=== PATIENT | female | born 1985 | race Caucasian/White ===

== ENCOUNTER 2019-09-11 20:09 | Emergency (ER) | payer BC, OTHER ==
[~2019-09-11] VITALS: Ht 162.6 cm; Wt 81.3 kg
[~2019-09-11 20:09] MED LIST: ASPI-630 PO; IBUP400T18 PO; LEVO75TA PO; METO50TA29 PO; METO50TA4 PO; OXYC1TAB15 PO; PANT40TA3 PO
[2019-09-11 20:46] LABS: BASO % 1 % (0-3); EOS # 0.1 x10^3/uL (0.0-0.7); EOS % 2 % (0-3); HEMATOCRIT 39.9 % (36.0-47.0); HEMOGLOBIN 13.8 g/dL (12.0-15.5); LYMPH # 2.8 x10^3/uL (1.0-4.8); LYMPH % 42 % (24-48); MEAN CORPUSCULAR HEMOGLOBIN 31 pg (25-35); MEAN CORPUSCULAR HGB CONC 35 g/dL (31-37); MEAN CORPUSCULAR VOLUME 91 fL (79-100); MONO # 0.4 x10^3/uL (0.0-1.1); MONO % 7 % (0-9); NEUT # 3.2 x10^3uL (1.8-7.7); NEUT % 49 % (31-73); PLATELET COUNT 161 x10^3/uL (140-400); RED BLOOD COUNT 4.39 x10^6/uL (3.50-5.40); RED CELL DISTRIBUTION WIDTH 11.4 % (11.5-14.5); WHITE BLOOD COUNT 6.6 x10^3/uL (4.0-11.0)
[2019-09-11 20:53] LABS: CALCIUM 8.3 mg/dL (8.5-10.1); CREATININE 0.9 mg/dL (0.6-1.0); GFR 71.7; POTASSIUM 3.3 mmol/L (3.5-5.1)
[2019-09-11 20:54] LABS: BACTERIA,URINE FEW /HPF (0-FEW); BILIRUBIN,URINE SMALL (NEG); CLARITY,URINE HAZY; COLOR,URINE AMBER; GLUCOSE,URINE NEG (NEG); NITRITE,URINE NEG (NEG); SQUAMOUS EPITHELIAL CELL,UR OCC /LPF
[2019-09-11 20:59] LABS: ALBUMIN 3.5 g/dL (3.4-5.0); ALBUMIN/GLOBULIN RATIO 0.9 (1.0-1.7); TOTAL BILIRUBIN 0.3 mg/dL (0.2-1.0); TOTAL PROTEIN 7.2 g/dL (6.4-8.2)
[2019-09-11 21:10] LABS: U PREG PATIENT NEGATIVE (NEG)
[2019-09-11] MEDS ORDERED: IOHEXOL 300 MG/ML 75 ML VIAL. IV ONE (21:30)
[2019-09-11] MEDS ORDERED: MORPHINE SULFATE 4 MG/ML DISP.SYRIN. IV ONE (21:30)
[2019-09-11] MEDS ORDERED: IV NORMAL SALINE 1,000ML 1,000 ML IV ONE (21:30)
[2019-09-11] MEDS ORDERED: diphenhydrAMINE 50 MG/ML VIAL IVP ONE (21:30)
[2019-09-11] MEDS ORDERED: POTASSIUM CHLORIDE 20 MEQ TABLET.ER. PO ONE (21:30)
[2019-09-11] MEDS ORDERED: CONTRAST GIVEN MC PRN (21:30)
[2019-09-11] MEDS ORDERED: KETOROLAC 30 MG/ML VIAL. IVP ONE (22:00)
--- NOTE | 2019-09-11 22:03 | RAD ---
CT abdomen and pelvis with contrast: Reason for examination: Severe low abdominal and back pain with cramping since Sunday. History of sacral fracture and L5 pars defect. History of cholecystectomy, appendectomy and bowel resection. Comparison is made to previous studies dated 08/13/2015 and 06/24/2014. Helical images were obtained through the abdomen and pelvis with intravenous administration of 75 cc Omnipaque 300. Reconstruction was performed in sagittal and coronal planes. Exposure: One or more of the following individualized dose reduction techniques were utilized for this examination: 1. Automated exposure control 2. Adjustment of the mA and/or kV according to patient size 3. Use of iterative reconstruction technique. The lung bases are clear. The heart size is normal with no pericardial effusion. No abnormality seen at the liver, spleen, adrenal glands or pancreas. The gallbladder is surgically absent. The kidneys show no renal masses, renal calculi, hydronephrosis or evidence of obstructive uropathy. The abdominal aorta and inferior vena cava show no acute abnormalities. The stomach contains a large amount of gastric content but no wall thickening. There is no gastric obstruction apparent. The small intestinal tract does not appear abnormally dilated and there is no wall thickening or evidence of obstruction. There are postop changes in the colon with anastomosis in the sigmoid colon with a large portion of the transverse and descending colon removed. No abnormality seen at the bladder, or uterus. The ovaries show presence of cystic lesions bilaterally with the largest lesion in the right ovary measuring approximately 2 cm in size and the largest lesion in the left ovary measuring approximately 18 mm in size. No other adnexal masses are seen. No free fluid is present. No free air is present. No acute bony abnormality is seen. Bilateral pars defects are seen at the L5 level. IMPRESSION: Gastric distention of large gastric content but no apparent obstruction. No apparent bowel obstruction. Small cysts in the ovaries bilaterally but no other pelvic abnormality seen., Electronically signed by: Kia Hernandez MD (09/11/2019 10:00 PM) [facility]
--- NOTE | 2019-09-11 22:10 | PHYS DOC ---
Past History Past Medical History: A-Fib, Arrhythmia, Constipation, Hypertension, Hypothyroid, Migraines, Other Past Surgical History: Appendectomy, Cholecystectomy, Colectomy, , Pacemaker, Tonsillectomy, Other Smoking: Non-smoker Alcohol Use: Occasionally Drug Use: None Adult General Chief Complaint Chief Complaint: ABDOMINAL PAIN HPI HPI Patient is a 34-year-old female who presented to ER today for evaluation of lower abdominal pain and lower back pain started a couple days ago. Patient denies any nausea or vomiting, no fever. Patient denies any injury. Patient had history of multiple abdominal operations include hysterectomy, appendectomy, complete colectomy. She denies any fever, no bowel or bladder incontinence, no urinary symptom. She says she fell and broke her sacrum last January. Ever since She would have some period of pain like this. aLL OTHER ros IS NEGATIVE UNLESS OTHERWISE NOTED IN hpi Review of Systems Review of Systems See above Current Medications Current Medications Current Medications Medications (Trade) Dose Ordered Sig/Walter Start Time Stop Time Status Last Admin Dose Admin Diphenhydramine HCl (Benadryl) 25 mg 1X ONCE 09/11/19 21:30 09/11/19 21:31 DC 09/11/19 21:23 25 MG Info (Do NOT chart on this entry -- for MONITORING) 1 each PRN DAILY PRN 09/11/19 21:30 09/13/19 21:29 Iohexol (Omnipaque 300 Mg/ml) 75 ml 1X ONCE 09/11/19 21:30 09/11/19 21:31 DC 09/11/19 21:28 75 ML Ketorolac Tromethamine (Toradol 30mg Vial) 30 mg 1X ONCE 09/11/19 22:00 09/11/19 22:01 DC 09/11/19 22:00 30 MG Morphine Sulfate (Morphine 4mg Syringe) 4 mg 1X ONCE 09/11/19 21:30 09/11/19 21:31 DC 09/11/19 21:22 4 MG Potassium Chloride (Klor-Con) 40 meq 1X ONCE 09/11/19 21:30 09/11/19 21:31 DC 09/11/19 21:22 40 MEQ Sodium Chloride 1,000 ml @ 1,000 mls/hr 1X ONCE 09/11/19 21:30 09/11/19 22:29 09/11/19 21:30 1,000 MLS/HR Allergies Allergies Allergies Coded Allergies Type Severity Reaction Last Updated Verified codeine Allergy Unknown 01/28/16 Yes hydrocodone bitartrate Adverse Reaction Unknown Itching 06/24/14 Yes sulfamethoxazole Adverse Reaction Unknown MIGRAIN 01/28/16 Yes trimethoprim Adverse Reaction Unknown MIGRAIN 01/28/16 Yes Physical Exam Physical Exam See above Constitutional: Well developed, well nourished, no acute distress, non-toxic appearance. [] HENT: Normocephalic, atraumatic, bilateral external ears normal, oropharynx moist, no oral exudates, nose normal. [] Eyes: PERRLA, EOMI, conjunctiva normal, no discharge. [] Neck: Normal range of motion, no tenderness, supple, no stridor. [] Cardiovascular:Heart rate regular rhythm, no murmur [] Lungs & Thorax: Bilateral breath sounds clear to auscultation [] Abdomen: Bowel sounds normal, soft, no tenderness, no masses, no pulsatile masses. [] Skin: Warm, dry, no erythema, no rash. [] Back: No tenderness, no CVA tenderness.No pain to palpation in sacrum area. Extremities: No tenderness, no cyanosis, no clubbing, ROM intact, no edema. [] Neurologic: Alert and oriented X 3, normal motor function, normal sensory function, no focal deficits noted. [] Psychologic: Affect normal, judgement normal, mood normal. [] Current Patient Data Vital Signs Vital Signs Date Time Temp Pulse Resp B/P (MAP) Pulse Ox O2 Delivery O2 Flow Rate FiO2 09/11/19 21:22 18 99 Room Air 09/11/19 20:18 74 Lab Results Laboratory Tests Test 09/11/19 20:30 09/11/19 20:35 White Blood Count 6.6 x10^3/uL (4.0-11.0) Red Blood Count 4.39 x10^6/uL (3.50-5.40) Hemoglobin 13.8 g/dL (12.0-15.5) Hematocrit 39.9 % (36.0-47.0) Mean Corpuscular Volume 91 fL (79-100) Mean Corpuscular Hemoglobin 31 pg (25-35) Mean Corpuscular Hemoglobin Concent 35 g/dL (31-37) Red Cell Distribution Width 11.4 % (11.5-14.5) L Platelet Count 161 x10^3/uL (140-400) Neutrophils (%) (Auto) 49 % (31-73) Lymphocytes (%) (Auto) 42 % (24-48) Monocytes (%) (Auto) 7 % (0-9) Eosinophils (%) (Auto) 2 % (0-3) Basophils (%) (Auto) 1 % (0-3) Neutrophils # (Auto) 3.2 x10^3uL (1.8-7.7) Lymphocytes # (Auto) 2.8 x10^3/uL (1.0-4.8) Monocytes # (Auto) 0.4 x10^3/uL (0.0-1.1) Eosinophils # (Auto) 0.1 x10^3/uL (0.0-0.7) Basophils # (Auto) 0.0 x10^3/uL (0.0-0.2) Sodium Level 140 mmol/L (136-145) Potassium Level 3.3 mmol/L (3.5-5.1) L Chloride Level 103 mmol/L (98-107) Carbon Dioxide Level 26 mmol/L (21-32) Anion Gap 11 (6-14) Blood Urea Nitrogen 13 mg/dL (7-20) Creatinine 0.9 mg/dL (0.6-1.0) Estimated GFR (Cockcroft-Gault) 71.7 BUN/Creatinine Ratio 14 (6-20) Glucose Level 93 mg/dL (70-99) Calcium Level 8.3 mg/dL (8.5-10.1) L Total Bilirubin 0.3 mg/dL (0.2-1.0) Aspartate Amino Transferase (AST) 15 U/L (15-37) Alanine Aminotransferase (ALT) 23 U/L (14-59) Alkaline Phosphatase 64 U/L (46-116) Total Protein 7.2 g/dL (6.4-8.2) Albumin 3.5 g/dL (3.4-5.0) Albumin/Globulin Ratio 0.9 (1.0-1.7) L Lipase 103 U/L (73-393) Urine Collection Type Unknown Urine Color [place] Urine Clarity Hazy Urine pH 6.0 Urine Specific [place] >=1.030 Urine Protein 30 mg/dl (NEG-TRACE) Urine Glucose (UA) Neg mg/dL (NEG) Urine Ketones (Stick) Trace mg/dL (NEG) Urine Blood Neg (NEG) Urine Nitrite Neg (NEG) Urine Bilirubin Small (NEG) Urine Urobilinogen Dipstick 1.0 mg/dL (0.2 mg/dL) Urine Leukocyte Esterase Neg (NEG) Urine RBC 1-2 /HPF (0-2) Urine WBC 1-4 /HPF (0-4) Urine Squamous Epithelial Cells Occ /LPF Urine Bacteria Few /HPF (0-FEW) Urine Mucus Mod /LPF Urine Test Negative (NEG) EKG EKG [] Radiology/Procedures Radiology/Procedures [][address] [address] IMAGING REPORT Signed PATIENT: FORTINO CH ACCOUNT: [id number] : 1985 LOCATION: ER AGE: 34 SEX: F EXAM STATUS: REG ER ORD. PHYSICIAN: EDDY XIONG DO REASON: LOWER ABDOMINAL and back PAIN with cramping SINCE SUNDAY PROCEDURE: CT ABD PELV W/ IV CONTRST ONLY CT abdomen and pelvis with contrast: Reason for examination: Severe low abdominal and back pain with cramping since Sunday. History of sacral fracture and L5 pars defect. History of cholecystectomy, appendectomy and bowel resection. Comparison is made to previous studies dated 08/13/2015 and 06/24/2014. Helical images were obtained through the abdomen and pelvis with intravenous administration of 75 cc Omnipaque 300. Reconstruction was performed in sagittal and coronal planes. Exposure: One or more of the following individualized dose reduction techniques were utilized for this examination: 1. Automated exposure control 2. Adjustment of the mA and/or kV according to patient size 3. Use of iterative reconstruction technique. The lung bases are clear. The heart size is normal with no pericardial effusion. No abnormality seen at the liver, spleen, adrenal glands or pancreas. The gallbladder is surgically absent. The kidneys show no renal masses, renal calculi, hydronephrosis or evidence of obstructive uropathy. The abdominal aorta and inferior vena cava show no acute abnormalities. The stomach contains a large amount of gastric content but no wall thickening. There is no gastric obstruction apparent. The small intestinal tract does not appear abnormally dilated and there is no wall thickening or evidence of obstruction. There are postop changes in the colon with anastomosis in the sigmoid colon with a large portion of the transverse and descending colon removed. No abnormality seen at the bladder, or uterus. The ovaries show presence of cystic lesions bilaterally with the largest lesion in the right ovary measuring approximately 2 cm in size and the largest lesion in the left ovary measuring approximately 18 mm in size. No other adnexal masses are seen. No free fluid is present. No free air is present. No acute bony abnormality is seen. Bilateral pars defects are seen at the L5 level. IMPRESSION: Gastric distention of large gastric content but no apparent obstruction. No apparent bowel obstruction. Small cysts in the ovaries bilaterally but no other pelvic abnormality seen., Electronically signed by: Lorna Randolph MD (09/11/2019 10:00 PM) [facility] DICTATED AND SIGNED BY: LORNA RANDOLPH MD DATE: 09/11/192199 CC: JUAN ISLAS; EDDY XIONG DO ~ Course & Med Decision Making Course & Med Decision Making Pertinent Labs and Imaging studies reviewed. (See chart for details) She had no nausea vomiting in the ER, there WAS no evidence of bowel obstruction. Patient did not show any evidence distress. Workup did not show any acute problem. Patient'S lab work were normal. Patient was discharged home, she was instructed to follow with her family doctor for further evaluation. Dragon Disclaimer Dragon Disclaimer This electronic medical record was generated, in whole or in part, using a voice recognition dictation system. Departure Departure: Impression: Primary Impression: Abdominal pain Disposition: HOME, SELF-CARE Condition: STABLE Referrals: JUAN ISLAS (PCP) call your doctor for follow up tomorrow. Patient Instructions: Abdominal Pain EDDY XIONG DO Sep 11, 2019 22:10
[2019-09-11 22:15] VITALS: BP 118/74
== END 2019-09-11 22:43 | disposition home or self-care (01) ==
LOC: ER 20:09
DX: R10.30 Lower abdominal pain, unspecified (principal); M54.5 Low back pain; I48.91 Unspecified atrial fibrillation; I10 Essential (primary) hypertension; E03.9 Hypothyroidism, unspecified; G43.909 Migraine, unspecified, not intractable, without status migrainosus; Z90.89 Acquired absence of other organs; Z90.49 Acquired absence of other specified parts of digestive tract; Z98.890 Other specified postprocedural states; Z95.0 Presence of cardiac pacemaker; Z88.5 Allergy status to narcotic agent; Z88.2 Allergy status to sulfonamides; Z88.1 Allergy status to other antibiotic agents
CPT/HCPCS: 36415; 74177; 80053; 81001; 81025; 83690; 85025; 96374; 96375; 99285; J1200; J1885; J2270; Q9967; J7030

== ENCOUNTER 2020-03-31 16:07 | Emergency (ER) | payer BC ==
[~2020-03-31] VITALS: Ht 162.6 cm; Wt 106.3 kg
[~2020-03-31 16:07] MED LIST changes: +CEPH-264 PO; +LISD70CA5 PO; +bentyl PO
[2020-03-31] MEDS ORDERED: IV NORMAL SALINE 1,000ML 1,000 ML IV ONE (16:30)
[2020-03-31] MEDS ORDERED: ACETAMINOPHEN 325 MG TABLET PO ONE (16:30)
--- NOTE | 2020-03-31 16:37 | PHYS DOC ---
Past History Past Medical History: No Pertinent History, Anxiety, Arthritis, Arrhythmia, Fibromyalgia, Other Additional Past Medical Histor: Cardiac, past Ht of SVT Past Surgical History: Appendectomy, Cholecystectomy, , Pacemaker, Tonsillectomy, Other Additional Past Surgical Histo: Cardiac ablation x 2; bilat ankle; colon Smoking: Non-smoker Alcohol Use: Rarely Drug Use: None General Adult EDM: Chief Complaint: RAPID HEART RATE HPI: HPI: 34-year-old female significant history of hypertension, hypothyroidism, paroxysmal SVT s/p ablation, atrial fibrillation s/p ablation, symptomatic bradycardia s/p Medtronic pacer, who p/w tachycardia at home, around 110-150. A/w feeling generally unwell over last week or so, mild bifrontal QUACH. Also reports months of intermittent fevers of unclear origin. Seen at [facility] ED Sat for CP, unremarkable workup. Neg COVID test end of February. Review of Systems: Review of Systems: Gen: No fever, chills. Reports feeling generally unwell. Eyes: No blurred vision, diplopia. ENT: No nasal congestion, sore throat. CV: No CP. Reports palpitations. Resp. Reports SOB, cough. GI: No abd pain, N/V. : No dysuria, hematuria. Neuro: No QUACH, dizziness. Reports generalized weakness. MSK: No myalgia, arthralgia Skin: No acute rash or lesion. Heart Score: Risk Factors: Risk Factors: DM, Current or recent (<one month) smoker, HTN, HLP, family history of CAD, obesity. Risk Scores: Score 0 - 3: 2.5% MACE over next 6 weeks - Discharge Home Score 4 - 6: 20.3% MACE over next 6 weeks - Admit for Clinical Observation Score 7 - 10: 72.7% MACE over next 6 weeks - Early Invasive Strategies Allergies: Allergies: Allergies Coded Allergies Type Severity Reaction Last Updated Verified codeine Allergy Unknown 03/31/20 Yes hydrocodone bitartrate Adverse Reaction Unknown Itching 03/31/20 Yes sulfamethoxazole Adverse Reaction Unknown MIGRAIN 03/31/20 Yes trimethoprim Adverse Reaction Unknown MIGRAIN 03/31/20 Yes Physical Exam: PE: Gen: NAD. Well nourished. Head: NC/AT. Eyes: No scleral icterus. No conjunctival injection. ENT: MMM. Posterior OP clear. Uvula midline. Neck: Supple. NT. No meningismus. CV: Tachycardia 110. Peripheral pulses intact. Resp: CTAB. No increased work of breathing. Abd: Soft. NT. ND. MSK: No peripheral cyanosis. No edema. Neuro: A&Ox3. Strength & sensation grossly intact throughout. No gross dysmetria. Skin. Warm. Dry. Psych: Appropriate mood & affect. Current Patient Data: Vital Signs: Vital Signs Date Time Temp Pulse Resp B/P (MAP) Pulse Ox O2 Delivery O2 Flow Rate FiO2 03/31/20 16:07 100.2 115 18 153/97 (115) 98 Room Air EKG: EKG: EKG performed at 1627. Sinus tachycardia. Heart rate 112. Normal intervals. Poor R wave progression. No STEMI. Interpreted by me. Radiology/Procedures: Radiology/Procedures: EXAM: Chest, single view. HISTORY: Cough. COMPARISON: None. FINDINGS: A frontal view of the chest is obtained. There is no infiltrate, pleural effusion or pneumothorax. The heart is normal in size. There is a cardiac pacemaker with leads in expected position. IMPRESSION: No acute pulmonary finding. Electronically signed by: Mabel Marshall MD (03/31/2020 4:56 PM) [id number] Course & Med Decision Making: Course & Med Decision Making Pertinent Labs and Imaging studies reviewed. (See chart for details) In summary, 34-year-old female with history of hypertension, prior ablations for SVT and atrial fibrillation, pacemaker for symptomatic bradycardia, who presents for evaluation of tachycardia, feeling generally unwell with reported months of intermittent fever of unclear origin. Low-grade fever here of 100.2. Mild tachycardia 110s. No hypoxia or hypotension. Unremarkable physical examination including cardiorespiratory. EKG shows no acute injury pattern. Lab work is otherwise unremarkable thus far including negative troponin. No leukocytosis. However, dimer is slightly elevated at 0.6. Her work-up will be escalated to include CTA chest rule out PE or other cardiopulmonary pathology. The patient's Medtronic device was interrogated, no significant events noted. 1748: Results thus far were discussed with the patient, with plan to escalate her work-up with CT angiography. However, the patient states that she just wishes to go home with this time. She refuses the study. The risks of foregoing the study were explained to the patient, including but not limited to: , disability, missed diagnosis, worsening condition. The patient verbally expressed understanding. The patient is well-appearing and nontoxic. I welcomed the patient to return anytime she changes her mind. She has a primary care physician appointment tomorrow. Jovanni Disclaimer: Jovanni Disclaimer: This electronic medical record was generated, in whole or in part, using a voice recognition dictation system. Departure Departure: Impression: Primary Impression: Left against medical advice Additional Impression: Tachycardia Disposition: 01 HOME/RESIDENCE PRIOR TO ADM Condition: STABLE Referrals: JUAN ISLAS (PCP) Justification of Admission: Justification of Admission: Justification of Admission Dx: N/A ESDRAS ACOSTA DO Mar 31, 2020 16:37
--- NOTE | 2020-03-31 16:59 | RAD ---
EXAM: Chest, single view. HISTORY: Cough. COMPARISON: None. FINDINGS: A frontal view of the chest is obtained. There is no infiltrate, pleural effusion or pneumothorax. The heart is normal in size. There is a cardiac pacemaker with leads in expected position. IMPRESSION: No acute pulmonary finding. Electronically signed by: Mabel Marshall MD (03/31/2020 4:56 PM) [id number]
[2020-03-31 17:05] LABS: BASO % 1 % (0-3); EOS # 0.1 x10^3/uL (0.0-0.7); EOS % 1 % (0-3); HEMATOCRIT 46.1 % (36.0-47.0); HEMOGLOBIN 15.9 g/dL (12.0-15.5); LYMPH # 1.9 x10^3/uL (1.0-4.8); LYMPH % 25 % (24-48); MEAN CORPUSCULAR HEMOGLOBIN 32 pg (25-35); MEAN CORPUSCULAR HGB CONC 34 g/dL (31-37); MEAN CORPUSCULAR VOLUME 94 fL (79-100); MONO # 0.5 x10^3/uL (0.0-1.1); MONO % 7 % (0-9); NEUT # 5.2 x10^3uL (1.8-7.7); NEUT % 67 % (31-73); PLATELET COUNT 142 x10^3/uL (140-400); RED BLOOD COUNT 4.92 x10^6/uL (3.50-5.40); RED CELL DISTRIBUTION WIDTH 12.1 % (11.5-14.5); WHITE BLOOD COUNT 7.7 x10^3/uL (4.0-11.0)
[2020-03-31 17:15] LABS: CALCIUM 9.1 mg/dL (8.5-10.1); GFR 63.5; POTASSIUM 3.7 mmol/L (3.5-5.1)
[2020-03-31 17:27] LABS: ALBUMIN 3.9 g/dL (3.4-5.0); ALBUMIN/GLOBULIN RATIO 1.1 (1.0-1.7); MAGNESIUM 1.8 mg/dL (1.8-2.4); TOTAL BILIRUBIN 0.4 mg/dL (0.2-1.0); TOTAL PROTEIN 7.6 g/dL (6.4-8.2)
--- NOTE | 2020-03-31 17:31 | EKG ---
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
[2020-03-31] MEDS ORDERED: KETOROLAC 15 MG/ML VIAL. ONE (17:32)
[2020-03-31] MEDS ORDERED: diphenhydrAMINE 50 MG/ML VIAL ONE (17:32)
[2020-03-31] MEDS ORDERED: METOCLOPRAMIDE HCL 10 MG/2 ML VIAL. ONE (17:32)
[2020-03-31] MEDS ORDERED: KETOROLAC 15 MG/ML VIAL. IVP ONE (17:45)
[2020-03-31] MEDS ORDERED: diphenhydrAMINE 50 MG/ML VIAL IVP ONE (17:45)
[2020-03-31] MEDS ORDERED: IOHEXOL 350 MG/ML 100 ML VIAL. IV ONE (17:45)
[2020-03-31] MEDS ORDERED: METOCLOPRAMIDE HCL 10 MG/2 ML VIAL. IVP ONE (17:45)
[2020-03-31 17:59] VITALS: BP 136/88
== END 2020-03-31 17:58 | disposition left against medical advice (07) ==
LOC: ER 16:07
DX: R00.0 Tachycardia, unspecified (principal); I10 Essential (primary) hypertension; E03.9 Hypothyroidism, unspecified; I48.91 Unspecified atrial fibrillation; M19.90 Unspecified osteoarthritis, unspecified site; M79.7 Fibromyalgia; F41.9 Anxiety disorder, unspecified; Z88.5 Allergy status to narcotic agent; Z88.2 Allergy status to sulfonamides; Z88.1 Allergy status to other antibiotic agents
CPT/HCPCS: 36415; 71045; 80053; 83735; 83880; 84443; 84484; 85025; 85379; 85610; 85730; 93005; 96374; 96375; 99285; J1200; J1885; J2765; J7030

== ENCOUNTER 2020-04-06 05:51 | Observation (INO) | payer BC ==
[~2020-04-06] VITALS: Ht 162.6 cm; Wt 109.3 kg
--- NOTE | 2020-04-06 06:08 | EKG ---
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
[2020-04-06] MEDS ORDERED: ASPIRIN 325 MG TABLET PO ONE (06:15)
[2020-04-06] MEDS ORDERED: FAMOTIDINE 20 MG/2 ML VIAL IVP ONE (06:15)
--- NOTE | 2020-04-06 06:15 | PHYS DOC ---
Past History Past Medical History: Anxiety, Arthritis, Arrhythmia, Fibromyalgia, Hypertension, Other Additional Past Medical Histor: past Ht of SVT Past Surgical History: Appendectomy, Cholecystectomy, , Pacemaker, Tonsillectomy, Other Additional Past Surgical Histo: Cardiac ablation x 2; bilat ankle; colon Smoking: Quit Greater Than 1 Year Alcohol Use: Rarely Drug Use: None General Adult EDM: Chief Complaint: CHEST PAIN HPI: HPI: 34-year-old female presents with chest pain, palpitations, and shortness of air that is been ongoing for the past few months. Patient reports has not been feeling well for this whole period of time. Patient also reports associated intermittent fevers T-max 100.6. Patient reports history of SVT and has noted her heart rate has been up into the 140s. Reports this happens intermittently. Denies leg swelling or calf tenderness. Denies history or family history of DVT/PE. Patient does report significant cardiac risk factors including former smoking, hypertension, and early family history in both mother and father who had MIs in their 40s. Denies trauma. Patient denies but has not had a menstrual period for the past few months. Reports was previously on control but stopped taking it approximately 3 weeks ago. Patient denies known exposure to COVID-19. Reports was tested the end of February and was reportedly negative. Review of Systems: Review of Systems: Constitutional: Reports fever and chills Eyes: Denies redness or eye pain HENT: Denies nasal congestion or sore throat Respiratory: Reports cough and shortness of breath Cardiovascular: Reports chest pain and palpitations GI: Denies abdominal pain, nausea, or vomiting : Denies dysuria or hematuria Musculoskeletal: Denies back pain or joint pain Integument: Denies rash or skin lesions Neurologic: Denies headache, focal weakness or sensory changes Complete systems were reviewed and found to be within normal limits, except as documented in this note. Heart Score: HEART Score for Chest Pain: HEART Score for Chest Pain Response (Comments) Value History Moderately Suspicious 1 ECG Normal 0 Age < 45 0 Risk Factors >3 Risk Factors or Hx CAD 2 Troponin < Normal Limit 0 Total 3 Risk Factors: Risk Factors: DM, Current or recent (<one month) smoker, HTN, HLP, family history of CAD, obesity. Risk Scores: Score 0 - 3: 2.5% MACE over next 6 weeks - Discharge Home Score 4 - 6: 20.3% MACE over next 6 weeks - Admit for Clinical Observation Score 7 - 10: 72.7% MACE over next 6 weeks - Early Invasive Strategies Current Medications: Current Meds: Current Medications Medications (Trade) Dose Ordered Sig/Walter Start Time Stop Time Status Last Admin Dose Admin Aspirin (Thanh Aspirin) 325 mg 1X ONCE 04/06/20 06:15 04/06/20 06:16 Famotidine (Pepcid Vial) 20 mg 1X ONCE 04/06/20 06:15 04/06/20 06:16 Allergies: Allergies: Allergies Coded Allergies Type Severity Reaction Last Updated Verified codeine Allergy Unknown 03/31/20 Yes hydrocodone bitartrate Adverse Reaction Unknown Itching 03/31/20 Yes sulfamethoxazole Adverse Reaction Unknown MIGRAIN 03/31/20 Yes trimethoprim Adverse Reaction Unknown MIGRAIN 03/31/20 Yes Physical Exam: PE: Constitutional: Well developed, well nourished, no acute distress, non-toxic appearance HENT: Normocephalic, atraumatic, Eyes: Conjunctiva normal, no discharge Neck: Normal range of motion, no tenderness, supple Lungs & Thorax: No respiratory distress, equal chest rise and fall Abdomen: Soft, no tenderness Skin: Warm, dry, no erythema, no rash Back: No tenderness, no CVA tenderness Extremities: No tenderness, ROM intact, no edema Neurologic: Alert and oriented X 3, no focal deficits noted Psychologic: Affect anxious, judgment normal Current Patient Data: Vital Signs: Vital Signs Date Time Temp Pulse Resp B/P (MAP) Pulse Ox O2 Delivery O2 Flow Rate FiO2 04/06/20 06:02 98.0 84 20 139/92 (108) 98 Room Air EKG: EKG: @0601 NSR at 73bpm, NO ST elevation, QRS 78ms, QT/QTc 392/436ms Radiology/Procedures: Radiology/Procedures: [] Course & Med Decision Making: Course & Med Decision Making Pertinent Labs and Imaging studies reviewed. (See chart for details) Patient presents with report of chest pain, shortness of air, palpitations, and fever. EKG stable. Labs obtained and pending. Cannot exclude COVID-19. COVID precautions in place. COVID testing obtained. Signout given to Dr. Max for further evaluation and final disposition. Discussed current findings and plan with patient, who acknowledges understanding and agreement. COVID-19 CRITERIA: The patient was evaluated during the global COVID-19 pandemic, and that diagnosis was suspected/considered upon their initial presentation. Their evaluation, treatment and testing was consistent with current guidelines for patients who present with complaints or symptoms that may be related to COVID-19. Jovanni Disclaimer: Dragon Disclaimer: This electronic medical record was generated, in whole or in part, using a voice recognition dictation system. Departure Departure: Impression: Primary Impression: Chest pain Qualified Codes: R07.9 - Chest pain, unspecified Referrals: CHANTAL LANGSTON (PCP) Justification of Admission: Justification of Admission: Justification of Admission Dx: N/A COVID-19 Assessment COVID-19 Patient Risks: Age 65 or older: No Sign of co-morbidity: Yes Exp to person + for COVID: No Exp to PUI: No Travel from affected area: No Lower respiratory symptoms: Yes Fever: Yes PPE Use: Full PPE with N95 mask or PAPR: Yes CHASITY VILLALOBOS DO Apr 06, 2020 06:15
[2020-04-06 06:25] LABS: BASO % 1 % (0-3); EOS # 0.1 x10^3/uL (0.0-0.7); EOS % 2 % (0-3); HEMATOCRIT 40.3 % (36.0-47.0); HEMOGLOBIN 13.8 g/dL (12.0-15.5); LYMPH # 2.3 x10^3/uL (1.0-4.8); LYMPH % 38 % (24-48); MEAN CORPUSCULAR HEMOGLOBIN 32 pg (25-35); MEAN CORPUSCULAR HGB CONC 34 g/dL (31-37); MEAN CORPUSCULAR VOLUME 94 fL (79-100); MONO # 0.5 x10^3/uL (0.0-1.1); MONO % 7 % (0-9); NEUT # 3.2 x10^3uL (1.8-7.7); NEUT % 52 % (31-73); PLATELET COUNT 163 x10^3/uL (140-400); RED BLOOD COUNT 4.29 x10^6/uL (3.50-5.40); RED CELL DISTRIBUTION WIDTH 12.1 % (11.5-14.5); WHITE BLOOD COUNT 6.1 x10^3/uL (4.0-11.0)
[2020-04-06 06:32] LABS: CALCIUM 8.7 mg/dL (8.5-10.1); CREATININE 0.9 mg/dL (0.6-1.0); GFR 71.7; POTASSIUM 3.3 mmol/L (3.5-5.1)
[2020-04-06] MEDS ORDERED: KETOROLAC 15 MG/ML VIAL. IVP ONE (06:45)
[2020-04-06 06:48] LABS: ALBUMIN 3.5 g/dL (3.4-5.0); ALBUMIN/GLOBULIN RATIO 0.9 (1.0-1.7); MAGNESIUM 1.9 mg/dL (1.8-2.4); TOTAL BILIRUBIN 0.3 mg/dL (0.2-1.0); TOTAL PROTEIN 7.2 g/dL (6.4-8.2)
[2020-04-06 07:35] LABS: BARBITURATES NEG (NEG); BENZODIAZEPINES NEG (NEG); CANNABINOIDS NEG (NEG); COCAINE NEG (NEG); METHADONE NEG (NEG); OPIATES NEG (NEG); PHENCYCLIDINE NEG (NEG)
[2020-04-06 07:36] LABS: BILIRUBIN,URINE NEG (NEG); CLARITY,URINE CLEAR; COLOR,URINE YELLOW; GLUCOSE,URINE NEG (NEG); NITRITE,URINE NEG (NEG); UROBILINOGEN,URINE 0.2 mg/dL (0.2 mg/dL)
[2020-04-06 07:37] LABS: BACTERIA,URINE FEW /HPF (0-FEW); RBC,URINE OCC /HPF (0-2); SQUAMOUS EPITHELIAL CELL,UR MOD /LPF; WBC,URINE OCC /HPF (0-4)
[2020-04-06 07:41] LABS: U PREG PATIENT NEGATIVE (NEG)
[2020-04-06 07:44] LABS: AMPHETAMINE/METHAMPHETAMINE POS (NEG)
[2020-04-06] MEDS ORDERED: IV NORMAL SALINE 1,000ML 1,000 ML IV ONE (07:45)
[2020-04-06] MEDS ORDERED: diphenhydrAMINE 50 MG/ML VIAL IVP ONE ×2 (07:45→11:15)
[2020-04-06] MEDS ORDERED: DEXAMETHASONE SOD PHOS 4 MG/ML VIAL. IVP ONE (07:45)
--- NOTE | 2020-04-06 07:57 | RAD ---
PA and lateral chest. HISTORY: Chest pain, short of breath, pacemaker PA and lateral views were taken of the chest. Left pacemaker is unchanged. There is no pneumothorax or pleural effusion. Heart is normal in size. Lungs are free of infiltrates. IMPRESSION: 1. No acute chest disease. Electronically signed by: Jasbir Ortiz MD (04/06/2020 7:54 AM) [id number]
--- NOTE | 2020-04-06 10:25 | PDOC2 ---
CARDIAC CONSULT DATE OF CONSULT Date Of Consult DATE: 04/06/20 TIME: 10:19 REASON FOR CONSULT Reason for Consult Chest pain REFERRING PHYSICIAN Referring Physician Dr. Ochoa SOURCE Source: Chart review, Patient HPI History of Present Illness This is a 34 yo female who presented secondary to chest pain. Patient reports chest pain has been intermittent since September. A week and a half ago, pain became constant. Located in her central chest. Describes as stabbing, pressure. Associated with nausea and shortness of breath. No diaphoresis. Pain seems to be worse with deep breathing. No relieving factors. Reports pain to be different from what she has previously experienced with GERD. Was dizzy as well a week and a half ago when chest pain started and was seen for evaluation at [facility] ED. Was discharge home as AMI was ruled out. Was seen at [facility] for this past and left AMA as she reports reaction to Reglan as she "freaked out". Reports generally not feeling well. Reports YOUNG since last fall. Has been very fatigued. Also reports intermittent fevers since September of this year. Reports her heart rate and blood pressure have been running high that normal recently. Also reporting 40lb weight gain since May. She has history of PSVT and had undergone ablation therapy in 2008 followed by permanent pacemaker implantation in 2009 with more recent generator change. She previously followed with at [facility], but has not seen him in over a year. Has had device checks recently that she reports as normal.. PAST MEDICAL HISTORY Past Medical History Paroxysmal SVT s/p ablation therapy Permanent pacemaker implantation in 2009 and more recent generator change Fibromyalgia Anxiety Hypertension Hypothyroidism IVONE Depression GERD Obesity ADHD PAST SURGICAL HISTORY Past Surgical History Permanent pacemaker implantation and subsequent generator change FAMILY HISTORY Family History: Coronary Artery Disease (mother with IA in early 40's and subsequent CABG in late 50's. ), Hypertension SOCIAL HISTORY Smoke: Quit (1 year ago) ALCOHOL: social Drugs: None Lives: with Family CURRENT MEDICATIONS Current Medications Current Medications Aspirin (Thanh Aspirin) 325 mg 1X ONCE PO Last administered on 04/06/20at 06:17; Start 04/06/20 at 06:15; Stop 04/06/20 at 06:16; Status DC Famotidine (Pepcid Vial) 20 mg 1X ONCE IVP Last administered on 04/06/20at 06:17; Start 04/06/20 at 06:15; Stop 04/06/20 at 06:16; Status DC Ketorolac Tromethamine (Toradol 15mg Vial) 15 mg 1X ONCE IVP Last administered on 04/06/20at 06:58; Start 04/06/20 at 06:45; Stop 04/06/20 at 06:58; Status DC Diphenhydramine HCl (Benadryl) 25 mg 1X ONCE IVP Last administered on 04/06/20at 07:55; Start 04/06/20 at 07:45; Stop 04/06/20 at 07:59; Status DC Sodium Chloride 1,000 ml @ 1,000 mls/hr 1X ONCE IV Last administered on 04/06/20at 07:55; Start 04/06/20 at 07:45; Stop 04/06/20 at 08:44; Status DC Dexamethasone Sodium Phosphate (Decadron) 4 mg 1X ONCE IVP Last administered on 04/06/20at 07:55; Start 04/06/20 at 07:45; Stop 04/06/20 at 07:59; Status DC Lorazepam (Ativan Inj) 2 mg 1X ONCE IVP Last administered on 04/06/20at 09:24; Start 04/06/20 at 09:15; Stop 04/06/20 at 09:16; Status DC Active Scripts Active Keflex (Cephalexin) 500 Mg Capsule 1 Cap PO TID 7 Days Percocet 5-325 Mg Tablet (Oxycodone Hcl/Acetaminophen) 1 Each Tablet 1 Tab PO Q6HRS Reported Vyvanse (Lisdexamfetamine Dimesylate) 70 Mg Capsule 1 Cap PO DAILYWBKFT MDD 1 Capsule(s) 5 Days Protonix (Pantoprazole Sodium) 40 Mg Tablet. 1 Tab PO DAILY Synthroid (Levothyroxine Sodium) 75 Mcg Tablet 75 Mcg PO DAILY Metoprolol Succinate ( Xl ) (Metoprolol Succinate) 50 Mg Tab.er.24h 100 Mg PO DAILY Ibuprofen 400 Mg Tablet 2 Tab PO PRN Q6HRS ALLERGIES Allergies: Coded Allergies: codeine (Verified Allergy, Unknown, 03/31/20) metoclopramide (Verified Adverse Reaction, Intermediate, anxiety, 04/06/20) prochlorperazine (Verified Adverse Reaction, Intermediate, anxiety, 04/06/20) hydrocodone bitartrate (Verified Adverse Reaction, Unknown, Itching, 03/31/20) sulfamethoxazole (Verified Adverse Reaction, Unknown, MIGRAIN, 03/31/20) trimethoprim (Verified Adverse Reaction, Unknown, MIGRAIN, 03/31/20) ROS Review of Systems 14 point ROS conducted with pertinent positives noted above in hPI PHYSICAL EXAM General: Alert, Oriented X3, Cooperative, No acute distress HEENT: Mucous membr. moist/pink Lungs: Clear to auscultation, Normal air movement Heart: Regular rate Abdomen: Soft, No tenderness Extremities: No edema, Normal pulses Skin: No rashes, No breakdown Neuro: Normal speech, Sensation intact Psych/Mental Status: Mental status NL, Mood NL MUSCULOSKELETAL: No joint tenderness VITALS Vital Signs Vital Signs Date Time Temp Pulse Resp B/P (MAP) Pulse Ox O2 Delivery O2 Flow Rate FiO2 04/06/20 06:02 98.0 84 20 139/92 (108) 98 Room Air LABS LABS Laboratory Tests Test 04/06/20 06:05 04/06/20 07:06 White Blood Count 6.1 x10^3/uL (4.0-11.0) Red Blood Count 4.29 x10^6/uL (3.50-5.40) Hemoglobin 13.8 g/dL (12.0-15.5) Hematocrit 40.3 % (36.0-47.0) Mean Corpuscular Volume 94 fL (79-100) Mean Corpuscular Hemoglobin 32 pg (25-35) Mean Corpuscular Hemoglobin Concent 34 g/dL (31-37) Red Cell Distribution Width 12.1 % (11.5-14.5) Platelet Count 163 x10^3/uL (140-400) Neutrophils (%) (Auto) 52 % (31-73) Lymphocytes (%) (Auto) 38 % (24-48) Monocytes (%) (Auto) 7 % (0-9) Eosinophils (%) (Auto) 2 % (0-3) Basophils (%) (Auto) 1 % (0-3) Neutrophils # (Auto) 3.2 x10^3uL (1.8-7.7) Lymphocytes # (Auto) 2.3 x10^3/uL (1.0-4.8) Monocytes # (Auto) 0.5 x10^3/uL (0.0-1.1) Eosinophils # (Auto) 0.1 x10^3/uL (0.0-0.7) Basophils # (Auto) 0.0 x10^3/uL (0.0-0.2) Prothrombin Time < 9.3 SEC (9.4-11.4) Prothromb Time International Ratio (0.9-1.1) Activated Partial Thromboplast Time 25 SEC (23-33) D-Dimer (Yazmin) 0.48 mg/L (0.00-0.50) Sodium Level 138 mmol/L (136-145) Potassium Level 3.3 mmol/L (3.5-5.1) Chloride Level 102 mmol/L (98-107) Carbon Dioxide Level 27 mmol/L (21-32) Anion Gap 9 (6-14) Blood Urea Nitrogen 12 mg/dL (7-20) Creatinine 0.9 mg/dL (0.6-1.0) Estimated GFR (Cockcroft-Gault) 71.7 BUN/Creatinine Ratio 13 (6-20) Glucose Level 120 mg/dL (70-99) Calcium Level 8.7 mg/dL (8.5-10.1) Magnesium Level 1.9 mg/dL (1.8-2.4) Total Bilirubin 0.3 mg/dL (0.2-1.0) Aspartate Amino Transf (AST/SGOT) 16 U/L (15-37) Alanine Aminotransferase (ALT/SGPT) 36 U/L (14-59) Alkaline Phosphatase 86 U/L (46-116) Creatine Kinase 108 U/L (26-192) Creatine Kinase MB (Mass) 0.8 ng/mL (0.0-3.6) Creatine Kinase MB Relative Index 0.7 % (0-4) Troponin I Quantitative < 0.017 ng/mL (0-0.055) ZO-Poo-N-Type Natriuretic Peptide 111 pg/mL (0-124) Total Protein 7.2 g/dL (6.4-8.2) Albumin 3.5 g/dL (3.4-5.0) Albumin/Globulin Ratio 0.9 (1.0-1.7) Lipase 109 U/L (73-393) Urine Collection Type Unknown Urine Color Yellow Urine Clarity Clear Urine pH 6.0 Urine Specific [place] >=1.030 Urine Protein Neg (NEG-TRACE) Urine Glucose (UA) Neg mg/dL (NEG) Urine Ketones (Stick) Neg mg/dL (NEG) Urine Blood Neg (NEG) Urine Nitrite Neg (NEG) Urine Bilirubin Neg (NEG) Urine Urobilinogen Dipstick 0.2 mg/dL (0.2 mg/dL) Urine Leukocyte Esterase Neg (NEG) Urine RBC Occ /HPF (0-2) Urine WBC Occ /HPF (0-4) Urine Squamous Epithelial Cells Mod /LPF Urine Bacteria Few /HPF (0-FEW) Urine Mucus Slight /LPF Urine Test Negative (NEG) Urine Opiates Screen Neg (NEG) Urine Methadone Screen Neg (NEG) Urine Barbiturates Neg (NEG) Urine Phencyclidine Screen Neg (NEG) Urine Amphetamine/Methamphetamine Pos (NEG) Urine Benzodiazepines Screen Neg (NEG) Urine Cocaine Screen Neg (NEG) Urine Cannabinoids Screen Neg (NEG) Urine Ethyl Alcohol Neg (NEG) ASSESSMENT/PLAN Assessment/Plan 1. Chest pain, atypical features; initial trop negative. EKG without significant acute changes 2. Paroxysmal SVT s/p ablation twice, [place] [facility] [place] not seen > 1 yr. Maintaining SR in ED 3. S/p PPM with subsequent generator change. 4. Hypertension; Controlled 5. Hypothyroidism: On levo thyroxine 6. ADHD; on Vyvanse 7. GERD 8. Depression, anxiety 9. IVONE Recommendations Trend trop Lipids TSH Resume metoprolol for rate control Check echo to assess LV systolic function Given family h/o premature CAD, will plan for further ischemic evaluation, most probably on an outpatient basis. Supportive care Further pending above. KEIRY DAVID APRN Apr 06, 2020 10:25
[2020-04-06 11:32] VITALS: BP 126/84
--- NOTE | 2020-04-06 11:40 | HP ---
ADMIT DATE: 04/06/2020 ATTENDING PHYSICIAN: Dr. Vail. CHIEF COMPLAINT: Chest pain. HISTORY OF PRESENT ILLNESS: The patient is a 34-year-old female admitted through the ED with new onset of epigastric pain. She has also had vague symptoms. She has a very flat affect. She has reported associated fevers up to 100.6 degrees Fahrenheit. She had a COVID-19 swab. Her chest x-ray is clear. The patient has a history of paroxysmal supraventricular tachycardia, resulting ablation therapy and a permanent pacemaker in 2009. She says this happens intermittently. No recent swelling. No exposure to COVID-19. She denies any . She was seen and evaluated. Her initial electrocardiogram showed no acute changes. Cardiac enzymes were negative for coronary ischemia. She is admitted in for Cardiology evaluation and serial cardiac enzymes. Hemodynamically, she is stable. She has had some chronic back pain. She sees a operating room assistant at [facility]. PAST MEDICAL HISTORY: Significant for the PSVT resulting in ablation and permanent pacemaker. She has had cholecystectomy, appendectomy, , partial colectomy for achalasia, fibromyalgia, hypertension, generalized anxiety. She has degenerative arthritis, chronic low back pain. SOCIAL HISTORY: She had been a smoker. She quit a year ago. No alcohol use. CURRENT MEDICATIONS: Reviewed. She is on scheduled Vyvanse, cephalexin, ibuprofen intermittently, Synthroid, metoprolol 100 mg daily, Protonix and oxycodone p.r.n. pain. FAMILY HISTORY: Significant for heart disease in both her mom and dad, exact diagnosis is unclear. REVIEW OF SYSTEMS: Significant for back pain, low-grade fevers, generalized myalgias and not feeling well. All other systems reviewed and determined to be negative. ALLERGIES: SHE HAS MULTIPLE ALLERGIES INCLUDING CODEINE, HYDROCODONE, METOCLOPRAMIDE, PROCHLORPERAZINE, SULFA DRUGS AND TRIMETHOPRIM. PHYSICAL EXAMINATION: GENERAL: When I saw her, this is an obese white female with a flat affect. INITIAL VITAL SIGNS: Showed a blood pressure 139/92 mmHg, pulse is 84 and regular, temperature 98.0 degrees Fahrenheit, oxygen saturation 98% on room air. HEENT: Head is without trauma. Pupils are reactive. Sclerae nonicteric. Oropharynx is clear. NECK: Supple, no bruits identified. LUNGS: Otherwise clear. CARDIOVASCULAR: Showed regular heart tones. No gallops. Peripheral pulses are palpable and full. ABDOMEN: Obese, protuberant. No organomegaly. Bowel sounds are hypoactive. EXTREMITIES: Showed no cyanosis or edema. NEUROLOGIC: Focally intact. Affect is flat. SKIN: Warm and dry. PERTINENT LABORATORY AND X-RAY STUDIES: The chest x-ray showed entirely clear lung henry. Heart size is normal limits of normal. Permanent pacemaker with 2 wires intact. LABORATORY STUDIES: The hemoglobin is 13.8 g/dL with a white count of 6100. Electrolytes showed a sodium of 138, potassium 3.3 mEq, nonfasting blood sugar 120, CO2 is normal, creatinine 0.9 mg percent. The first set of cardiac enzymes negative for coronary ischemia. Lipase is normal. Transaminases are normal. ASSESSMENT: 1. A 34-year-old female with atypical chest pain. I do believe it is cardiac. 2. History of paroxysmal supraventricular tachycardia with previous ablation and permanent pacemaker. 3. Underlying depression with anxiety. 4. Fibromyalgia. 5. Chronic low back pain. 6. Gastroesophageal reflux disease. 7. History of multiple surgeries. PLAN: 1. Observation status admission. 2. Serial cardiac enzymes. 3. Cardiology consultation for recommendations. 4. Diet as tolerated. 5. Pain and nausea control. 6. Continue home meds. FAYE VAIL MD DR: YURIDIA/eryn JOB#: [id number] / [id number]
[2020-04-06] MEDS: HYDROmorphone PF 1 MG/ML DISP.SYRIN IV PRN ×3 (12:18→20:46)
[2020-04-06] MEDS: POTASSIUM CHLORIDE 20 MEQ TABLET.ER. PO SCH ×2 (12:20→20:46)
[2020-04-06 14:10] LABS: THYROID STIM HORMONE (TSH) 3.005 uIU/mL (0.358-3.740)
[2020-04-06 15:18] VITALS: BP 140/80
--- NOTE | 2020-04-06 18:06 | PHYS DOC ---
Past History Past Medical History: Anxiety, Arthritis, Arrhythmia, Fibromyalgia, Hypertension, Other Additional Past Medical Histor: past Ht of SVT Past Surgical History: Appendectomy, Cholecystectomy, , Pacemaker, Tonsillectomy, Other Additional Past Surgical Histo: Cardiac ablation x 2; bilat ankle; colon Smoking: Quit Greater Than 1 Year Alcohol Use: Rarely Drug Use: None General Adult EDM: Chief Complaint: CHEST PAIN HPI: HPI: 34-year-old female presents with chest pain. She has been having chest discom fort for the last 1 to 2 days. She is also had generalized body aches, fatigue, and feeling of lethargy. She has a history of ablation for SVTNRT. She then had a pacemaker placed. She has had no previous cardiovascular events such as heart attack. She is also concerned about COVID-19. She has no specific exposures. She tested negative a month ago. She denies fever chills. Review of Systems: Review of Systems: Constitutional: Denies fever or chills. Fatigue Eyes: Denies change in visual acuity HENT: Denies nasal congestion or sore throat Respiratory: Denies cough or shortness of breath Cardiovascular: Chest pain GI: Denies abdominal pain, nausea, vomiting, bloody stools or diarrhea : Denies dysuria Musculoskeletal: Denies back pain or joint pain Integument: Denies rash Neurologic: Denies headache, focal weakness or sensory changes Endocrine: Denies polyuria or polydipsia Lymphatic: Denies swollen glands Psychiatric: Denies depression or anxiety Heart Score: Risk Factors: Risk Factors: DM, Current or recent (<one month) smoker, HTN, HLP, family history of CAD, obesity. Risk Scores: Score 0 - 3: 2.5% MACE over next 6 weeks - Discharge Home Score 4 - 6: 20.3% MACE over next 6 weeks - Admit for Clinical Observation Score 7 - 10: 72.7% MACE over next 6 weeks - Early Invasive Strategies Current Medications: Current Meds: Current Medications Medications (Trade) Dose Ordered Sig/Walter Start Time Stop Time Status Last Admin Dose Admin Aspirin (Thanh Aspirin) 325 mg 1X ONCE 04/06/20 06:15 04/06/20 06:16 DC 04/06/20 06:17 325 MG Dexamethasone Sodium Phosphate (Decadron) 4 mg 1X ONCE 04/06/20 07:45 04/06/20 07:59 DC 04/06/20 07:55 4 MG Diphenhydramine HCl (Benadryl) 25 mg 1X ONCE 04/06/20 07:45 04/06/20 07:59 DC 04/06/20 07:55 25 MG Famotidine (Pepcid Vial) 20 mg 1X ONCE 04/06/20 06:15 04/06/20 06:16 DC 04/06/20 06:17 20 MG Ketorolac Tromethamine (Toradol 15mg Vial) 15 mg 1X ONCE 04/06/20 06:45 04/06/20 06:58 DC 04/06/20 06:58 15 MG Lorazepam (Ativan Inj) 2 mg 1X ONCE 04/06/20 09:15 04/06/20 09:16 DC 04/06/20 09:24 2 MG Sodium Chloride 1,000 ml @ 1,000 mls/hr 1X ONCE 04/06/20 07:45 04/06/20 08:44 DC 04/06/20 07:55 1,000 MLS/HR Allergies: Allergies: Allergies Coded Allergies Type Severity Reaction Last Updated Verified codeine Allergy Unknown 03/31/20 Yes metoclopramide Adverse Reaction Intermediate anxiety 04/06/20 Yes prochlorperazine Adverse Reaction Intermediate anxiety 04/06/20 Yes hydrocodone bitartrate Adverse Reaction Unknown Itching 03/31/20 Yes sulfamethoxazole Adverse Reaction Unknown MIGRAIN 03/31/20 Yes trimethoprim Adverse Reaction Unknown MIGRAIN 03/31/20 Yes Physical Exam: PE: Constitutional: Well developed, morbidly obese, well nourished, no acute distress, non-toxic appearance. [] HENT: Normocephalic, atraumatic, bilateral external ears normal, oropharynx moist, no oral exudates, nose normal. [] Eyes: PERRLA, EOMI, conjunctiva normal, no discharge. [] Neck: Normal range of motion, no tenderness, supple, no stridor. [] Cardiovascular: Heart rate regular rhythm, no murmur [] Lungs & Thorax: Bilateral breath sounds clear to auscultation [] Abdomen: Bowel sounds normal, soft, no tenderness, no masses, no pulsatile masses. [] Skin: Warm, dry, no erythema, no rash. [] Back: No tenderness, no CVA tenderness. [] Extremities: No tenderness, no cyanosis, no clubbing, ROM intact, no edema. [] Neurologic: Alert and oriented X 3, normal motor function, normal sensory function, no focal deficits noted. [] Psychologic: Affect normal, judgement normal, mood anxious. [] Current Patient Data: Labs: Laboratory Tests Test 04/06/20 06:05 04/06/20 07:06 04/06/20 13:20 White Blood Count 6.1 x10^3/uL (4.0-11.0) Red Blood Count 4.29 x10^6/uL (3.50-5.40) Hemoglobin 13.8 g/dL (12.0-15.5) Hematocrit 40.3 % (36.0-47.0) Mean Corpuscular Volume 94 fL (79-100) Mean Corpuscular Hemoglobin 32 pg (25-35) Mean Corpuscular Hemoglobin Concent 34 g/dL (31-37) Red Cell Distribution Width 12.1 % (11.5-14.5) Platelet Count 163 x10^3/uL (140-400) Neutrophils (%) (Auto) 52 % (31-73) Lymphocytes (%) (Auto) 38 % (24-48) Monocytes (%) (Auto) 7 % (0-9) Eosinophils (%) (Auto) 2 % (0-3) Basophils (%) (Auto) 1 % (0-3) Neutrophils # (Auto) 3.2 x10^3uL (1.8-7.7) Lymphocytes # (Auto) 2.3 x10^3/uL (1.0-4.8) Monocytes # (Auto) 0.5 x10^3/uL (0.0-1.1) Eosinophils # (Auto) 0.1 x10^3/uL (0.0-0.7) Basophils # (Auto) 0.0 x10^3/uL (0.0-0.2) Prothrombin Time < 9.3 SEC (9.4-11.4) L Prothrombin Time INR (0.9-1.1) Activated Partial Thromboplast Time 25 SEC (23-33) D-Dimer (Yazmin) 0.48 mg/L (0.00-0.50) Sodium Level 138 mmol/L (136-145) Potassium Level 3.3 mmol/L (3.5-5.1) L Chloride Level 102 mmol/L (98-107) Carbon Dioxide Level 27 mmol/L (21-32) Anion Gap 9 (6-14) Blood Urea Nitrogen 12 mg/dL (7-20) Creatinine 0.9 mg/dL (0.6-1.0) Estimated GFR (Cockcroft-Gault) 71.7 BUN/Creatinine Ratio 13 (6-20) Glucose Level 120 mg/dL (70-99) H Calcium Level 8.7 mg/dL (8.5-10.1) Magnesium Level 1.9 mg/dL (1.8-2.4) Total Bilirubin 0.3 mg/dL (0.2-1.0) Aspartate Amino Transferase (AST) 16 U/L (15-37) Alanine Aminotransferase (ALT) 36 U/L (14-59) Alkaline Phosphatase 86 U/L (46-116) Creatine Kinase 108 U/L (26-192) Creatine Kinase MB (Mass) 0.8 ng/mL (0.0-3.6) Creatine Kinase MB Relative Index 0.7 % (0-4) Troponin I Quantitative < 0.017 ng/mL (0-0.055) < 0.017 ng/mL (0-0.055) [id number]-[id number]-M-Type Natriuretic Peptide 111 pg/mL (0-124) Total Protein 7.2 g/dL (6.4-8.2) Albumin 3.5 g/dL (3.4-5.0) Albumin/Globulin Ratio 0.9 (1.0-1.7) L Triglycerides Level 274 mg/dL (0-150) H Cholesterol Level 202 mg/dL (0-200) H LDL Cholesterol, Calculated 103 mg/dL (0-100) H VLDL Cholesterol, Calculated 54 mg/dL (0-40) H Non-HDL Cholesterol Calculated 157 mg/dL (0-129) H HDL Cholesterol 45 mg/dL (40-60) Cholesterol/HDL Ratio 4.0 Lipase 109 U/L (73-393) Thyroid Stimulating Hormone (TSH) 3.005 uIU/mL (0.358-3.740) Urine Collection Type Unknown Urine Color Yellow Urine Clarity Clear Urine pH 6.0 Urine Specific [place] >=1.030 Urine Protein Neg (NEG-TRACE) Urine Glucose (UA) Neg mg/dL (NEG) Urine Ketones (Stick) Neg mg/dL (NEG) Urine Blood Neg (NEG) Urine Nitrite Neg (NEG) Urine Bilirubin Neg (NEG) Urine Urobilinogen Dipstick 0.2 mg/dL (0.2 mg/dL) Urine Leukocyte Esterase Neg (NEG) Urine RBC Occ /HPF (0-2) Urine WBC Occ /HPF (0-4) Urine Squamous Epithelial Cells Mod /LPF Urine Bacteria Few /HPF (0-FEW) Urine Mucus Slight /LPF Urine Test Negative (NEG) Urine Opiates Screen Neg (NEG) Urine Methadone Screen Neg (NEG) Urine Barbiturates Neg (NEG) Urine Phencyclidine Screen Neg (NEG) Urine Amphetamine/Methamphetamine Pos (NEG) Urine Benzodiazepines Screen Neg (NEG) Urine Cocaine Screen Neg (NEG) Urine Cannabinoids Screen Neg (NEG) Urine Ethyl Alcohol Neg (NEG) Vital Signs: Vital Signs Date Time Temp Pulse Resp B/P (MAP) Pulse Ox O2 Delivery O2 Flow Rate FiO2 04/06/20 16:32 18 94 04/06/20 15:18 99.4 95 140/80 (100) Room Air EKG: EKG: [] Radiology/Procedures: Radiology/Procedures: [] Course & Med Decision Making: Course & Med Decision Making Pertinent Labs and Imaging studies reviewed. (See chart for details) [] Dragon Disclaimer: Dragon Disclaimer: This electronic medical record was generated, in whole or in part, using a voice recognition dictation system. Departure Departure: Impression: Primary Impression: Chest pain Qualified Codes: R07.9 - Chest pain, unspecified Disposition: ADMITTED INPATIENT Admitting Physician: Jack Ochoa Condition: STABLE Referrals: CHANTAL LANGSTON (PCP) Justification of Admission: Justification of Admission: Justification of Admission Dx: N/A ELVIRA DÍAZ DO Apr 06, 2020 18:06
[2020-04-06 19:30] VITALS: BP 130/70
[2020-04-06] MEDS: diphenhydrAMINE 50 MG/ML VIAL IVP PRN (20:45)
[2020-04-06 23:00] VITALS: BP 117/66
[2020-04-07] VITALS: BP 113/56
[2020-04-07] MEDS: HYDROmorphone PF 1 MG/ML DISP.SYRIN IV PRN ×2 (01:47→05:52)
[2020-04-07] MEDS: diphenhydrAMINE 50 MG/ML VIAL IVP PRN ×2 (01:47→05:53)
[2020-04-07] MEDS ORDERED: LEVOTHYROXINE 75 MCG TABLET PO SCH (06:00)
[2020-04-07 06:17] VITALS: BP 125/80
[2020-04-07] MEDS ORDERED: PANTOPRAZOLE 40 MG TABLET. PO SCH (07:30)
--- NOTE | 2020-04-07 07:51 | PDOC ---
KEIRY DAVID LOADING MACHINE TOOL SETTER 04/07/20 0751: CARDIO Progress Notes Date & Time Date of Service DATE: 04/07/20 TIME: 07:47 Time of Evaluation 07:47 Subjective Notes C/o QUACH and fatigue Vitals Vitals Vital Signs Date Time Temp Pulse Resp B/P (MAP) Pulse Ox O2 Delivery O2 Flow Rate FiO2 04/07/20 06:17 98.3 66 18 125/80 (95) 99 Nasal Cannula 04/07/20 05:52 2.0 Weight Weight [ ] Input and Output I.O. Intake and Output 04/07/20 07:00 Intake Total 2000 ml Balance 2000 ml Intake Oral 1000 ml IV Total 1000 ml # Voids 3 Laboratory Labs Laboratory Tests Test 04/06/20 06:05 04/06/20 07:06 04/06/20 13:20 04/06/20 19:00 White Blood Count 6.1 x10^3/uL (4.0-11.0) Red Blood Count 4.29 x10^6/uL (3.50-5.40) Hemoglobin 13.8 g/dL (12.0-15.5) Hematocrit 40.3 % (36.0-47.0) Mean Corpuscular Volume 94 fL (79-100) Mean Corpuscular Hemoglobin 32 pg (25-35) Mean Corpuscular Hemoglobin Concent 34 g/dL (31-37) Red Cell Distribution Width 12.1 % (11.5-14.5) Platelet Count 163 x10^3/uL (140-400) Neutrophils (%) (Auto) 52 % (31-73) Lymphocytes (%) (Auto) 38 % (24-48) Monocytes (%) (Auto) 7 % (0-9) Eosinophils (%) (Auto) 2 % (0-3) Basophils (%) (Auto) 1 % (0-3) Neutrophils # (Auto) 3.2 x10^3uL (1.8-7.7) Lymphocytes # (Auto) 2.3 x10^3/uL (1.0-4.8) Monocytes # (Auto) 0.5 x10^3/uL (0.0-1.1) Eosinophils # (Auto) 0.1 x10^3/uL (0.0-0.7) Basophils # (Auto) 0.0 x10^3/uL (0.0-0.2) Prothrombin Time < 9.3 SEC (9.4-11.4) Prothromb Time International Ratio (0.9-1.1) Activated Partial Thromboplast Time 25 SEC (23-33) D-Dimer (Yazmin) 0.48 mg/L (0.00-0.50) Sodium Level 138 mmol/L (136-145) Potassium Level 3.3 mmol/L (3.5-5.1) Chloride Level 102 mmol/L (98-107) Carbon Dioxide Level 27 mmol/L (21-32) Anion Gap 9 (6-14) Blood Urea Nitrogen 12 mg/dL (7-20) Creatinine 0.9 mg/dL (0.6-1.0) Estimated GFR (Cockcroft-Gault) 71.7 BUN/Creatinine Ratio 13 (6-20) Glucose Level 120 mg/dL (70-99) Calcium Level 8.7 mg/dL (8.5-10.1) Magnesium Level 1.9 mg/dL (1.8-2.4) Total Bilirubin 0.3 mg/dL (0.2-1.0) Aspartate Amino Transf (AST/SGOT) 16 U/L (15-37) Alanine Aminotransferase (ALT/SGPT) 36 U/L (14-59) Alkaline Phosphatase 86 U/L (46-116) Creatine Kinase 108 U/L (26-192) Creatine Kinase MB (Mass) 0.8 ng/mL (0.0-3.6) Creatine Kinase MB Relative Index 0.7 % (0-4) Troponin I Quantitative < 0.017 ng/mL (0-0.055) < 0.017 ng/mL (0-0.055) < 0.017 ng/mL (0-0.055) SC-Chj-T-Type Natriuretic Peptide 111 pg/mL (0-124) Total Protein 7.2 g/dL (6.4-8.2) Albumin 3.5 g/dL (3.4-5.0) Albumin/Globulin Ratio 0.9 (1.0-1.7) Triglycerides Level 274 mg/dL (0-150) Cholesterol Level 202 mg/dL (0-200) LDL Cholesterol, Calculated 103 mg/dL (0-100) VLDL Cholesterol, Calculated 54 mg/dL (0-40) Non-HDL Cholesterol Calculated 157 mg/dL (0-129) HDL Cholesterol 45 mg/dL (40-60) Cholesterol/HDL Ratio 4.0 Lipase 109 U/L (73-393) Thyroid Stimulating Hormone (TSH) 3.005 uIU/mL (0.358-3.740) Urine Collection Type Unknown Urine Color Yellow Urine Clarity Clear Urine pH 6.0 Urine Specific [place] >=1.030 Urine Protein Neg (NEG-TRACE) Urine Glucose (UA) Neg mg/dL (NEG) Urine Ketones (Stick) Neg mg/dL (NEG) Urine Blood Neg (NEG) Urine Nitrite Neg (NEG) Urine Bilirubin Neg (NEG) Urine Urobilinogen Dipstick 0.2 mg/dL (0.2 mg/dL) Urine Leukocyte Esterase Neg (NEG) Urine RBC Occ /HPF (0-2) Urine WBC Occ /HPF (0-4) Urine Squamous Epithelial Cells Mod /LPF Urine Bacteria Few /HPF (0-FEW) Urine Mucus Slight /LPF Urine Test Negative (NEG) Urine Opiates Screen Neg (NEG) Urine Methadone Screen Neg (NEG) Urine Barbiturates Neg (NEG) Urine Phencyclidine Screen Neg (NEG) Urine Amphetamine/Methamphetamine Pos (NEG) Urine Benzodiazepines Screen Neg (NEG) Urine Cocaine Screen Neg (NEG) Urine Cannabinoids Screen Neg (NEG) Urine Ethyl Alcohol Neg (NEG) Physical Exams HEENT: Neck Supple W Full Motion Chest: Symmetric Lungs: Clear to Auscultation Heart: S1S2, RRR Abdomen: Soft N/T Extremities: No Edema Neurology: alert, oriented, follow commands Assessment Assessment 1. Chest pain, atypical features; trop series negative, AMI ruled outl. EKG without significant acute changes 2. Paroxysmal SVT s/p ablation twice, followed by EP at [facility]. Maintaining SR/ST overnight 3. S/p PPM with subsequent generator change. 4. Hypertension; Controlled 5. Hypothyroidism: On levothyroxine 6. ADHD; on Vyvanse 7. GERD 8. Depression, anxiety 9. IVONE 10. Hyperlipidemia Recommendations Continue metoprolol for rate control Add ASA, statin therapy Echo pending Discussed further ischemic evaluation on an inpatient versus outpatient basis given risk factors. Patient requesting cardiac catheterization for definitive evaluation. R/b/a discussed and patient is agreeable. Will plan for transfer to [facility] for LHC in am. NPO p [place] Is also wanting to transfer cardiac care from [facility] as this is not convenient for her. Supportive care ALFONZO CALABRESE MD 04/07/201808: CARDIO Progress Notes Plan Plan Pt. seen and examined. Agree with above PHARMACIST note. Plan for left heart cath given the patients persistent chest pain with multiple risk factors. Thanks KEIRY DAVID APRN Apr 07, 2020 07:51 ALFONZO CALABRESE MD Apr 07, 2020 18:09
[2020-04-07] MEDS ORDERED: NON FORMULARY ITEM (Lisdexamfetamine Dimesylate (Vyvanse) 1 CAP) PO SCH (08:00)
[2020-04-07] MEDS: POTASSIUM CHLORIDE 20 MEQ TABLET.ER. PO SCH (08:08)
[2020-04-07 08:09] VITALS: BP 125/80
[2020-04-07] MEDS ORDERED: METOPROLOL SUCC 24HR ER 50 MG TAB.ER.24H. PO SCH (09:00)
[2020-04-07] MEDS ORDERED: ACETAMINOPHEN 325 MG TABLET PO ONE (09:10)
[2020-04-07] MEDS ORDERED: ASPIRIN ENTERIC COATED 81 MG TABLET.DR. PO SCH (09:15)
--- NOTE | 2020-04-07 14:13 | CARD ---
MR#: [id number] Date of Study: 04/06/2020 Ordering Physician: KEIRY DAVID, Referring Physician: KEIRY DAVID, Tech: Corina Zapata APPROVED REPORT EXAM: Two-dimensional and M-mode echocardiogram with Doppler and color Doppler. Other Information Quality : AverageHR: 95bpm Technically limited study due to body habitus. INDICATION Chest Pain Surgery/Intervention Pacemaker: Date: 2D DIMENSIONS RVDd1.9 (2.9-3.5cm)Left Atrium(2D)2.4 (1.6-4.0cm) IVSd1.2 (0.7-1.1cm)Aortic Root(2D)2.7 (2.0-3.7cm) LVDd4.2 (3.9-5.9cm)LVOT Diameter1.8 (1.8-2.4cm) PWd0.8 (0.7-1.1cm)LVDs2.8 (2.5-4.0cm) FS (%) 33.4 %SV49.5 ml LVEF(%)62.4 (>50%) Aortic Valve AoV Peak Cortez.134.6cm/sAoV VTI26.4cm AO Peak GR.7.2mmHgLVOT Peak Cortez.124.6cm/s LVOT VTI 23.22cmAO Mean GR.4mmHg ARJUN (VMAX)2.55nf4YHQ (VTI)2.15cm2 Mitral Valve MV E Zuarqhom56.4cm/sMV E Peak Gr.3mmHg MV DECEL [id number] A Phbxlpwi55.2cm/s MV E Mean Gr.2mmHgE/A Ratio0.9 Pulmonary Valve PV Peak Ffckwzzg207.9cm/sPV Peak Grad.5mmHg Tricuspid Valve TR P. Xlaqnonx352cz/sRAP [id number] TR Peak Gr.11rjDzEQGS68ufZh Pulmonary Vein S1 Wbnlieaq63.6cm/sD2 Tcrlyfmo36.8cm/s LEFT VENTRICLE The left ventricle is normal size. There is borderline to mild concentric left ventricular hypertroph y. The left ventricular systolic function is normal and the ejection fraction is within normal range. The Ejection Fraction is 60-65%. There is normal LV segmental wall motion. Transmitral Doppler flow pattern is Grade I-abnormal relaxation pattern. RIGHT VENTRICLE The right ventricle is normal size. There is normal right ventricular wall thickness. The right ventr icular systolic function is normal. There is a pacemaker lead in the right ventricle. ATRIA The left atrium size is normal. The right atrium size is normal. The interatrial septum is intact wit h no evidence for an atrial septal defect or patent foramen ovale as noted on 2-D or Doppler imaging. AORTIC VALVE The aortic valve is normal in structure and function. Doppler and Color Flow revealed no significant aortic regurgitation. There is no significant aortic valvular stenosis. Calculated aortic valve area is 2.7 cm2 with maximum pressure gradient of 8 mmHg and mean pressure gradient of 4 mmHg. MITRAL VALVE The mitral valve is normal in structure and function. There is no evidence of mitral valve prolapse. There is no mitral valve stenosis. Doppler and Color Flow revealed no mitral valve regurgitation note d. TRICUSPID VALVE The tricuspid valve is normal in structure and function. Doppler and Color Flow revealed trace tricus pid regurgitation with an estimated PAP of 38 mmHg. There is no tricuspid valve stenosis. PULMONIC VALVE The pulmonic valve is not well visualized. Doppler and Color Flow revealed trace pulmonic valvular re gurgitation. GREAT VESSELS The aortic root is normal in size. The ascending aorta is normal in size. The IVC was not well visual ized. PERICARDIAL EFFUSION There is no evidence of significant pericardial effusion. Critical Notification Critical Value: No <Conclusion> The left ventricular systolic function is normal and the ejection fraction is within normal range. Th e Ejection Fraction is 60-65%. There is normal LV segmental wall motion. There is a pacemaker lead in the right ventricle. Signed by : Xavier Valdez, Electronically Approved : 04/07/2020 14:12:34
--- NOTE | 2020-04-07 15:32 | DS ---
DATE OF DISCHARGE: 04/07/2020 DISCHARGE/TRANSFER SUMMARY HOSPITAL COURSE: The patient is a 34-year-old female patient who was admitted through the Emergency Room of [facility] with complaint of chest pain. She reported that this chest pain has been intermittent since September. A week and a half ago, the pain became constant, located in her central chest, described as stabbing pressure, associated with nausea and shortness of breath. No diaphoresis. Pain seems to be worse with deep breathing. No relieving factors. Reports pain to be different from what she has previously experienced with the gastroesophageal reflux disease, was dizzy as well a week and a half ago when chest pain started and was seen for evaluation at [facility] Emergency Department and was discharged home as acute myocardial infarction was ruled out, was seen at [facility] this past , left against medical advice as she reports a reaction to Reglan as she freaked out, reports generally not feeling well. She also reported dyspnea on exertion since last fall, has been very fatigued, also reports intermittent fever since September of this year. Her heart rate and blood pressure has been running high than normal, also reporting 40-pound weight gain since May. She apparently had a history of paroxysmal supraventricular tachycardia and had an ablation therapy in 2008, followed by permanent pacemaker implantation in 2009 with most recent generator change. She was seen previously by Dr. Kraft at [facility], but has not seen him in over a year, has had device checks recently that she reports is normal. She has had 3 sets of cardiac enzymes that were negative. She was seen in consultation by the Cardiology team and they recommended transferring her to [facility] for cardiac catheterization. PHYSICAL EXAMINATION: GENERAL: When I saw her this afternoon, she was resting slightly propped up in bed, in no apparent distress. She continued to complain of chest pain but also feeling anxious about the transfer to other hospital. There was no pallor, jaundice, cyanosis from thyromegaly. No jugular venous distention. No limb edema. VITAL SIGNS: Her heart rate was 66, blood pressure was 125/80, temperature was 98.3, respiratory rate was 18 and oxygen saturation was 99% on 2 liters of oxygen. HEAD, EYES, EARS, NOSE AND THROAT: Showed normocephalic, atraumatic. NECK: Supple. HEART: Normal first and second heart sounds. No gallop or murmur. CHEST: Clear to auscultation. No crepitation or rhonchi. ABDOMEN: Distended, soft, nontender. No guarding or rigidity. No organomegaly. All hernial orifices intact. Bowel sounds normal. NEUROLOGIC: She is grossly intact. LABORATORY DATA: Her lab work showed her white cell count was 6000, hemoglobin 14, hematocrit 40, MCV 94 and platelet count 263,000. Chemistry showed a serum sodium 138, potassium 3.3, chloride 102, bicarbonate 27, anion gap of 9, BUN 12, creatinine 0.9, estimated GFR was 72 mL per minute. Her glucose 120, calcium was 8.7, magnesium was 1.9. Total bilirubin, AST, ALT, alkaline phosphatase were normal. Three sets of cardiac enzymes showed troponin to be less than 0.017. Her B-type natriuretic peptide was 111. Total protein 7.2, albumin was 3.5. Her serum triglycerides were 274, total cholesterol 202, LDL was 103, VLDL was 64, and HDL cholesterol 45, total cholesterol to HDL cholesterol ratio was 4. Lipase was 109. TSH was 3.005. Her prothrombin time, INR, aPTT and D-dimer are all normal. Urinalysis was essentially negative. Her urine test was negative. Toxic screen was positive for amphetamine, methamphetamine; however, she is on Vyvanse for ADHD. FINAL DISCHARGE DIAGNOSES: 1. Chest pain, atypical features. Her 3 sets of troponins were negative, acute myocardial infarction is ruled out. EKG without significant acute changes. 2. Paroxysmal supraventricular tachycardia, status post ablation twice followed by a permanent pacemaker at [facility]. 3. Hypertension. 4. Hypothyroidism, on levothyroxine. 5. Attention deficit hyperactivity disorder, on Vyvanse. 6. Gastroesophageal reflux disease. 7. Depression and anxiety. 8. Obstructive sleep apnea. 9. Hyperlipidemia. The patient has had an echocardiogram. She would be seen at [facility] with a plan for cardiac catheterization. SANA BALDERAS MD DR: LOBO/eryn JOB#: [id number] / [id number]
[2020-04-07] MEDS ORDERED: ATORVASTATIN CALCIUM 20 MG TABLET PO SCH (21:00)
[2020-04-08] MEDS ORDERED: ASPIRIN ENTERIC COATED 81 MG TABLET.DR. PO SCH (08:00)
== END 2020-04-07 13:19 | disposition short-term general hospital (02) ==
LOC: ER 05:51 → ICU 09:20 → 1 SOUTH 04-07 05:20
PROVIDERS: ADMIT Hospitalist; ATTEND Internal Medicine
DX: Z03.818 Encounter for observation for suspected exposure to other biological agents ruled out (principal); R07.89 Other chest pain; F41.8 Other specified anxiety disorders; E78.5 Hyperlipidemia, unspecified; G47.33 Obstructive sleep apnea (adult) (pediatric); E03.9 Hypothyroidism, unspecified; I10 Essential (primary) hypertension; I47.1 Supraventricular tachycardia; K21.9 Gastro-esophageal reflux disease without esophagitis; M79.7 Fibromyalgia; F90.9 Attention-deficit hyperactivity disorder, unspecified type; G89.29 Other chronic pain; M54.5 Low back pain; Z87.891 Personal history of nicotine dependence; Z95.0 Presence of cardiac pacemaker; Z90.49 Acquired absence of other specified parts of digestive tract; Z79.899 Other long term (current) drug therapy
CPT/HCPCS: 36415; 71046; 80053; 80061; 80307; 81001; 81025; 82553; 83690; 83735; 83880; 84443; 84484; 85025; 85379; 85610; 85730; 93005; 93306; 96374; 96375; 96376; 99285; G0378; J1100; J1170; J1200; J1885; J2060; J3490; J7030; U0003; G0379

== ENCOUNTER 2020-07-06 15:51 | Emergency (ER) | payer BC ==
[~2020-07-06] VITALS: Ht 162.6 cm; Wt 106.0 kg
[2020-07-06] MEDS ORDERED: KETOROLAC 15 MG/ML VIAL. IVP ONE (16:15)
[2020-07-06] MEDS ORDERED: diphenhydrAMINE 50 MG/ML VIAL IVP ONE (16:15)
[2020-07-06] MEDS ORDERED: IV NORMAL SALINE 1,000ML 1,000 ML IV ONE (16:15)
[2020-07-06] MEDS ORDERED: methylPREDNISolone SOD SUCC PF 125 MG/2 ML VIAL. IV ONE (16:15)
[2020-07-06] MEDS ORDERED: ONDANSETRON PF 4 MG/2 ML VIAL. IVP ONE (16:15)
--- NOTE | 2020-07-06 16:18 | PHYS DOC ---
Past History Past Medical History: Anxiety, Arthritis, Arrhythmia, Depression, Fibromyalgia, Hypertension, Hypothyroid, Migraines, Other Additional Past Medical Histor: past Ht of SVT Past Surgical History: Appendectomy, Cholecystectomy, , Pacemaker, Tonsillectomy, Other Additional Past Surgical Histo: Cardiac ablation x 2; bilat ankle; colon Smoking: Quit Greater Than 1 Year Alcohol Use: Rarely Drug Use: None General Adult EDM: Chief Complaint: HEADACHE HPI: HPI: Patient is a 35-year-old female who presents emergency department with complaints of a frontal headache that is worse on the right side since earlier this morning. She reports photophobia and nausea with her headache. Patient denies any fever, neck pain, blurred vision, vomiting, diarrhea, cough, shortness of breath, chest pain, abdominal pain, or body aches. She reports a previous history of migraines and states she has been having intermittent cluster headaches for the last 2 weeks. Patient reports that she has been taking her home medications with no relief in her symptoms.. Patient currently rates her pain a 10 out of 10 on the pain scale. Review of Systems: Review of Systems: Complete ROS is negative unless otherwise noted in HPI. Allergies: Allergies: Allergies Coded Allergies Type Severity Reaction Last Updated Verified codeine Allergy Unknown 07/06/20 Yes metoclopramide Adverse Reaction Intermediate anxiety 07/06/20 Yes prochlorperazine Adverse Reaction Intermediate anxiety 07/06/20 Yes hydrocodone bitartrate Adverse Reaction Unknown Itching 07/06/20 Yes sulfamethoxazole Adverse Reaction Unknown MIGRAIN 07/06/20 Yes trimethoprim Adverse Reaction Unknown MIGRAIN 07/06/20 Yes Physical Exam: PE: See Above Constitutional: Well developed, well nourished, no acute distress, non-toxic appearance, obese. [] HENT: Normocephalic, atraumatic, bilateral external ears normal, nose normal. [] Eyes: PERRLA, EOMI, conjunctiva normal, no discharge. [] Neck: Normal range of motion, no stridor. [] Cardiovascular:Heart rate regular rhythm Lungs & Thorax: respirations even and unlabored, no retractions, no respiratory distress [] Skin: Warm, dry, no erythema, no rash. [] Extremities: No cyanosis, no clubbing, ROM intact, no edema. [] Neurologic: Alert and oriented X 3, normal motor function, normal sensory function, no focal deficits noted. [] Psychologic: Affect normal, judgement normal, mood normal. [] Current Patient Data: Vital Signs: Vital Signs Date Time Temp Pulse Resp B/P (MAP) Pulse Ox O2 Delivery O2 Flow Rate FiO2 07/06/20 16:00 98.6 83 14 142/91 (108) 96 EKG: EKG: [] Radiology/Procedures: Radiology/Procedures: [] Heart Score: Risk Factors: Risk Factors: DM, Current or recent (<one month) smoker, HTN, HLP, family history of CAD, obesity. Risk Scores: Score 0 - 3: 2.5% MACE over next 6 weeks - Discharge Home Score 4 - 6: 20.3% MACE over next 6 weeks - Admit for Clinical Observation Score 7 - 10: 72.7% MACE over next 6 weeks - Early Invasive Strategies Course & Med Decision Making: Course & Med Decision Making Pertinent Labs and Imaging studies reviewed. (See chart for details) 35-year-old female who presented to the emergency room with complaints of a headache Patient reported a history of migraines, she states that in the past fentanyl and Dilaudid were the only medications that have helped to reduce her pain. Patient was given a liter of normal saline, 4 mg of Zofran, 125 mg of Solu- Medrol, 15 mg of Toradol, and 25 mg of Benadryl. She reported no relief of her symptoms after these medications. The patient was given 25 mg of oral Phenergan and a gram of IV magnesium. The patient reported no reduction in her symptoms. Patient was given 1 mg of Ativan she stated that the nausea was gone but that her pain remains a 9 out of 10 on the pain scale. I discussed the patient with Keila Roth order opiates for a migraine, patient was given 5 mg of IV Haldol. Prescription was written for Fioricet. I recommended that the patient keep a headache diary and follow-up with her primary care doctor in the next 1 to 2 days, patient might need a referral to neurology for further evaluation of chronic headaches. Encouraged her to return to the ER if symptoms worsen or new symptoms develop. Patient verbalized an understanding of home care, medications, follow-up, and return to ED instructions and was in agreement with the plan of care. [] Dragon Disclaimer: Dragon Disclaimer: This electronic medical record was generated, in whole or in part, using a voice recognition dictation system. Departure Departure: Impression: Primary Impression: Headache Qualified Codes: R51.9 - Headache, unspecified Disposition: 01 DC HOME SELF CARE/HOMELESS Condition: STABLE Referrals: CHANTAL LANGSTON (PCP) Patient Instructions: General Headache Without Cause, [id number] Additional Instructions: Fill the prescription and use it as directed. Home to rest in a cool dark room, limit screen exposure. Follow-up with your primary care doctor in 1 to 2 days, return to the ER IF symptoms worsen. Scripts Butalb/Acetaminophen/Caffeine ([id number]-AZTT CP) 1 Each Capsule 1-2 CAP PO Q6-8HRS PRN for HEADACHE MDD 6 tabs for 3 Days, #12 CAP 0 Refills Prov: LEVY CONRAD APRN 07/06/20 LEVY CONRAD APRN Jul 06, 2020 16:18
[2020-07-06] MEDS ORDERED: PROMETHAZINE 25 MG TABLET. PO ONE (17:30)
[2020-07-06] MEDS ORDERED: MAGNESIUM SULFATE 1GM 100 ML IV ONE (17:30)
[2020-07-06] MEDS ORDERED: HALOPERIDOL LACT 5 MG/ML VIAL. IVP ONE (19:00)
[2020-07-06] MEDS ORDERED: BUTA1CAP27 PO (19:26)
[2020-07-06 19:30] VITALS: BP 123/74
== END 2020-07-06 19:45 | disposition home or self-care (01) ==
LOC: ER 15:51
DX: G43.909 Migraine, unspecified, not intractable, without status migrainosus (principal); F41.9 Anxiety disorder, unspecified; M19.90 Unspecified osteoarthritis, unspecified site; M79.7 Fibromyalgia; I10 Essential (primary) hypertension; E03.9 Hypothyroidism, unspecified; Z87.891 Personal history of nicotine dependence; Z95.0 Presence of cardiac pacemaker; Z90.89 Acquired absence of other organs; Z90.49 Acquired absence of other specified parts of digestive tract; Z98.890 Other specified postprocedural states; Z88.5 Allergy status to narcotic agent; Z88.2 Allergy status to sulfonamides; Z88.1 Allergy status to other antibiotic agents; Z88.8 Allergy status to other drugs, medicaments and biological substances
CPT/HCPCS: 96361; 96365; 96375; 99285; J1200; J1630; J1885; J2060; J2405; J2930; J3475; J7030; Q0169

== ENCOUNTER 2020-07-27 08:29 | Emergency (ER) | payer BC ==
[~2020-07-27] VITALS: Ht 162.6 cm; Wt 103.6 kg
[~2020-07-27 08:29] MED LIST changes: +BUTA1CAP27 PO
[2020-07-27 08:32] VITALS: BP 125/81
--- NOTE | 2020-07-27 08:57 | PHYS DOC ---
Past History Past Medical History: Anxiety, Arthritis, Arrhythmia, Depression, Fibromyalgia, Hypertension, Hypothyroid, Migraines, Other Additional Past Medical Histor: past Ht of SVT Past Surgical History: Appendectomy, Cholecystectomy, , Pacemaker, Tonsillectomy, Other Additional Past Surgical Histo: Cardiac ablation x 2; bilat ankle; colon Smoking: Quit Greater Than 1 Year Alcohol Use: Rarely Drug Use: None General Adult EDM: Chief Complaint: HEADACHE HPI: HPI: Patient is a 35-year-old female presents with several weeks of headache. Patient was here at the end of June with a headache and patient states it never went away. Patient describes a severe and intensity frontal constant throbbing headache. Patient is similar to prior migraines. Patient states the symptoms have been worse over the last week as she has had congestion and fever. Patient's last temperature was 99. Patient had a Covid test done several days ago which was negative. Patient denies any difficulty breathing. Patient has had nausea but not vomiting. Patient has any difficulty breathing. Patient complains of an exacerbation of her chronic low back pain. Review of Systems: Review of Systems: Constitutional: Complains of fever Eyes: Denies change in visual acuity HENT: Complains of congestion Respiratory: Denies cough or shortness of breath Cardiovascular: Denies chest pain or edema GI: Denies abdominal pain,, vomiting, bloody stools or diarrhea, patient's had nausea : Denies dysuria Musculoskeletal: Complains of back pain Integument: Denies rash Neurologic: Complains of headache but no focal weakness or sensory changes Endocrine: Denies polyuria or polydipsia Lymphatic: Denies swollen glands Psychiatric: Denies depression or anxiety Current Medications: Current Meds: Current Medications Medications (Trade) Dose Ordered Sig/Walter Start Time Stop Time Status Last Admin Dose Admin Diphenhydramine HCl (Benadryl) 50 mg 1X ONCE 07/27/20 09:00 07/27/20 09:01 UNV Ketorolac Tromethamine (Toradol 15mg Vial) 15 mg 1X ONCE 07/27/20 09:00 07/27/20 09:01 Promethazine HCl (Phenergan) 25 mg 1X ONCE 07/27/20 09:00 07/27/20 09:01 UNV Sodium Chloride 1,000 ml @ 1,000 mls/hr 1X ONCE 07/27/20 09:00 07/27/20 09:59 Allergies: Allergies: Allergies Coded Allergies Type Severity Reaction Last Updated Verified codeine Allergy Unknown 07/06/20 Yes metoclopramide Adverse Reaction Intermediate anxiety 07/06/20 Yes prochlorperazine Adverse Reaction Intermediate anxiety 07/06/20 Yes hydrocodone bitartrate Adverse Reaction Unknown Itching 07/06/20 Yes sulfamethoxazole Adverse Reaction Unknown MIGRAIN 07/06/20 Yes trimethoprim Adverse Reaction Unknown MIGRAIN 07/06/20 Yes Physical Exam: PE: Constitutional: Well developed, well nourished, no acute distress, non-toxic appearance. [] HENT: Normocephalic, atraumatic, bilateral external ears normal, no trismus nose normal. [] Eyes: PERRLA, EOMI, conjunctiva normal, no discharge. [] Neck: Normal range of motion, no tenderness, supple, no stridor. [] No meningeal signs Cardiovascular:Heart rate regular rhythm, cap refills less than 2 seconds Lungs & Thorax: Bilateral breath sounds clear, no respiratory distress Abdomen: soft, no tenderness, no masses, no pulsatile masses. [] Skin: Warm, dry, no erythema, no rash. [] Back: No tenderness, no CVA tenderness. [] Extremities: No tenderness, no cyanosis, no clubbing, ROM intact, no edema. [] Neurologic: Alert and oriented X 3, normal motor function, normal sensory function, no focal deficits noted. [] Psychologic: Affect normal, judgement normal, mood normal. [] EKG: EKG: [] Radiology/Procedures: Radiology/Procedures: [][address] [address] IMAGING REPORT Signed PATIENT: FORTINO CH ACCOUNT: [id number] : 1985 LOCATION: ER AGE: 35 SEX: F EXAM STATUS: REG ER ORD. PHYSICIAN: CHRISTOPHER CLAIRE MD REASON: COUGH, HEADACHE,HX AFIB, PACEMAKER PROCEDURE: PORTABLE CHEST 1V EXAM: PORTABLE CHEST 1V INDICATION: Reason: COUGH, HEADACHE,HX AFIB, PACEMAKER / Spl. Instructions: / History: . TECHNIQUE: Single view COMPARISON: 04/06/2020 chest x-ray FINDINGS: Left chest dual-chamber pacemaker, MRI compatible is redemonstrated. The heart size is normal. The great vessels appear unremarkable. There is no hilar or mediastinal mass. The lungs are clear. There is no pleural effusion or pneumothorax. There are no significant osseous abnormalities. IMPRESSION: No active cardiopulmonary disease. Electronically signed by: Rahul Deshpande MD (07/27/2020 10:12 AM) [id number] DICTATED AND SIGNED BY: RAHUL DESHPANDE MD DATE: 07/27/20 1012 CC: CHRISTOPHER CLAIRE MD; CHANTAL LANGSTON ~ Heart Score: Risk Factors: Risk Factors: DM, Current or recent (<one month) smoker, HTN, HLP, family history of CAD, obesity. Risk Scores: Score 0 - 3: 2.5% MACE over next 6 weeks - Discharge Home Score 4 - 6: 20.3% MACE over next 6 weeks - Admit for Clinical Observation Score 7 - 10: 72.7% MACE over next 6 weeks - Early Invasive Strategies Course & Med Decision Making: Course & Med Decision Making Pertinent Labs and Imaging studies reviewed. (See chart for details) [] At 9:30 AM patient complains of cough. Patient reassessed at 10:45 AM and clinically improved. Cough is improved. 35-year-old female presents with a headache. Patient has been here prior for headaches. Patient also has URI symptoms with recent negative Covid test. Chest x-ray is negative. Patient has no meningeal signs and normal neurological exam. Doubt meningitis or intracranial hemorrhage. Patient be treated with antiemetics and is stable for discharge. Dragon Disclaimer: Dragon Disclaimer: This electronic medical record was generated, in whole or in part, using a voice recognition dictation system. Departure Departure: Impression: Primary Impression: Headache Additional Impression: Upper respiratory infection Disposition: 01 DC HOME SELF CARE/HOMELESS Condition: STABLE Referrals: CHANTAL LANGSTON (PCP) 2-3 DAYS Patient Instructions: General Headache Without Cause Additional Instructions: EMERGENCY DEPARTMENT GENERAL DISCHARGE INSTRUCTIONS THANK YOU for coming to [facility] Emergency Department (ED) today and trusting us with your care. We trust that you had a positive experience in our Emergency Department. If you wish to speak to the department Management you can contact the emergency department at YOUR FOLLOW UP INSTRUCTIONS ARE FOLLOWS: Do you have a private doctor? If you do not have a private doctor, please ask for a resource list of physicians or clinics that may be able to assist you with follow up care. The Emergency Physician has interpreted your x-rays. The X-ray specialist will also review them. If there is a change in the findings you will be notified in 48 hours when at all possible. A lab test or lab culture may have been done, your results will be reviewed and you will be notified if you need a change in treatment. ADDITIONAL INSTRUCTIONS AND INFORMATION Your care today has been supervised by a physician who is specially trained in emergency care. Many problems require more than one evaluation for a complete diagnosis and treatment. We recommend that you schedule your follow up appointment as recommended to ensure complete treatment of your illness or injury. If you are unable to obtain follow up care and continue to have a problem, or if your condition worsens we recommend that you r eturn to the ED. We are not able to safely determine your condition over the phone nor are we able to give sound medical advice over the phone. For these safety reasons, if you call for medical advice we will ask you to come to the ED for further evaluation If you have any questions regarding these discharge instructions please call the ED at . SAFETY INFORMATION In the interest of safety, wellness, and injury prevention; we encourage you to wear your seatbelt, if you smoke; quit smoking, and we encourage your family to use protective helmet for bicycling and other sporting events that present an increased risk for head injury. IF YOUR SYMPTOMS WORSEN OR NEW SYMPTOMS DEVELOP, OR YOU HAVE CONCERNS ABOUT YOUR CONDITION; OR IF YOUR CONDITION WORSENS WHILE YOU ARE WAITING FOR YOUR FOLLOW UP APPOINTMENT; EITHER CONTACT YOUR PRIMARY CARE DOCTOR, THE PHYSICIAN WHOSE NAME AND NUMBER YOU WERE GIVEN, OR RETURN TO THE ED IMMEDIATELY. Scripts Promethazine Hcl (PROMETHAZINE HCL) 25 Mg Tablet 1 TAB PO PRN Q6HRS for NAUSEA/HEADACHE, #20 TAB Prov: CHRISTOPHER CLAIRE MD 07/27/20 CHRISTOPHER CLAIRE MD Jul 27, 2020 08:57
[2020-07-27] MEDS ORDERED: PROMETHAZINE 25 MG TABLET. PO ONE (09:00)
[2020-07-27] MEDS ORDERED: IV NORMAL SALINE 1,000ML 1,000 ML IV ONE (09:00)
[2020-07-27] MEDS ORDERED: diphenhydrAMINE 50 MG/ML VIAL IVP ONE (09:00)
[2020-07-27] MEDS ORDERED: KETOROLAC 15 MG/ML VIAL. IVP ONE (09:00)
[2020-07-27] MEDS ORDERED: MORPHINE SULFATE 4 MG/ML DISP.SYRIN. IV ONE (09:45)
--- NOTE | 2020-07-27 10:15 | RAD ---
EXAM: PORTABLE CHEST 1V INDICATION: Reason: COUGH, HEADACHE,HX AFIB, PACEMAKER / Spl. Instructions: / History: . TECHNIQUE: Single view COMPARISON: 04/06/2020 chest x-ray FINDINGS: Left chest dual-chamber pacemaker, MRI compatible is redemonstrated. The heart size is normal. The great vessels appear unremarkable. There is no hilar or mediastinal mass. The lungs are clear. There is no pleural effusion or pneumothorax. There are no significant osseous abnormalities. IMPRESSION: No active cardiopulmonary disease. Electronically signed by: Wendy Deshpande MD (07/27/2020 10:12 AM) [id number]
[2020-07-27] MEDS ORDERED: PROM25TA10 PO (10:51)
[2020-07-27] MEDS ORDERED: IBUP-1673 PO (22:15)
== END 2020-07-27 11:17 | disposition home or self-care (01) ==
LOC: ER 08:29
DX: J06.9 Acute upper respiratory infection, unspecified (principal); G43.909 Migraine, unspecified, not intractable, without status migrainosus; G89.29 Other chronic pain; M54.5 Low back pain; M19.90 Unspecified osteoarthritis, unspecified site; M79.7 Fibromyalgia; I10 Essential (primary) hypertension; E03.9 Hypothyroidism, unspecified; Z87.891 Personal history of nicotine dependence; Z88.5 Allergy status to narcotic agent; Z88.2 Allergy status to sulfonamides; Z88.1 Allergy status to other antibiotic agents
CPT/HCPCS: 71045; 96361; 96374; 96375; 99284; J1200; J1885; J2270; J7030; Q0169

== ENCOUNTER 2020-07-27 18:11 | Emergency (ER) | payer BC ==
[~2020-07-27] VITALS: Ht 162.6 cm; Wt 103.6 kg
[~2020-07-27 18:11] MED LIST changes: +PROM25TA10 PO
[2020-07-27] MEDS ORDERED: SUMAtriptan SUCCINATE 50 MG TABLET PO ONE (19:00)
[2020-07-27] MEDS ORDERED: diphenhydrAMINE 50 MG/ML VIAL IVP ONE (19:00)
[2020-07-27] MEDS ORDERED: METOCLOPRAMIDE HCL 10 MG/2 ML VIAL. IVP ONE (19:00)
[2020-07-27] MEDS ORDERED: IV NORMAL SALINE 1,000ML 1,000 ML IV ONE (19:00)
--- NOTE | 2020-07-27 19:12 | PHYS DOC ---
Past History Past Medical History: Anxiety, Arthritis, Arrhythmia, Depression, Fibromyalgia, Hypertension, Hypothyroid, Migraines, Other Additional Past Medical Histor: past Ht of SVT (CHASITY MERCEDES APRN) Past Surgical History: Appendectomy, Cholecystectomy, , Pacemaker, Tonsillectomy, Other Additional Past Surgical Histo: Cardiac ablation x 2; bilat ankle; colon (CHASITY MERCEDES APRN) Smoking: Quit Greater Than 1 Year Alcohol Use: None Drug Use: None (CHASITY MERCEDES APRN) Adult General Chief Complaint Chief Complaint: HEADACHE HPI HPI Patient is a 35 year old female who presents with complaints of the worst headache of her life. Patient states that she has had a frontal headache for the past 3 weeks straight has been seen several times to include her primary care physician and has had no relief. Patient states her pain is a 10/10 in 1-10 pain scale, patient states that she is taking everything that she could possibly take for pain and nothing is helping. Patient denies photophobia, denies fever, chills, visual changes, nasal congestion, cough, shortness of breath. Patient denies chest pains, swelling of her extremities, abdominal pain or abdominal symptoms, dysuria, vaginal discharge or STI concerns. Patient de nies any pains in her back or pains in her joints, denies skin rashes, denies focal weaknesses, or sensory changes. Patient denies swelling of her glands, depressions, anxieties, homicidal or suicidal ideations. (CHASITY MERCEDES APRN) Review of Systems Review of Systems Constitutional: Denies fever or chills Eyes: Denies change in visual acuity, redness, or eye pain HENT: Denies nasal congestion or sore throat Respiratory: Denies cough or shortness of breath Cardiovascular: No additional information not addressed in HPI GI: Denies abdominal pain, nausea, vomiting, bloody stools or diarrhea : Denies dysuria or hematuria Musculoskeletal: Denies back pain or joint pain Integument: Denies rash or skin lesions Neurologic: Denies focal weakness or sensory changes, complains of a frontal headache that is the worst headache of her life that is less than the past 3 weeks rating a 10/10 on a 1-10 pain scale. Psychological: Patient denies anxieties, depressions, homicidal or suicidal ideations. All other systems were reviewed and found to be within normal limits, except as documented in this note. (CHASITY MERCEDES APRN) Current Medications Current Medications Current Medications Medications (Trade) Dose Ordered Sig/Walter Start Time Stop Time Status Last Admin Dose Admin Diphenhydramine HCl (Benadryl) 50 mg 1X ONCE 07/27/20 19:00 07/27/20 19:07 DC Metoclopramide HCl (Reglan Vial) 10 mg 1X ONCE 07/27/20 19:00 07/27/20 19:01 UNV Sodium Chloride 1,000 ml @ 1,000 mls/hr 1X ONCE 07/27/20 19:00 07/27/20 19:59 Sumatriptan Succinate (Imitrex) 50 mg 1X ONCE 07/27/20 19:00 07/27/20 19:07 DC (CHASITY MERCEDES APRN) Allergies Allergies Allergies Coded Allergies Type Severity Reaction Last Updated Verified codeine Allergy Unknown 07/06/20 Yes metoclopramide Adverse Reaction Intermediate anxiety 07/06/20 Yes prochlorperazine Adverse Reaction Intermediate anxiety 07/06/20 Yes sulfamethoxazole Adverse Reaction Unknown MIGRAIN 07/06/20 Yes trimethoprim Adverse Reaction Unknown MIGRAIN 07/06/20 Yes (CHASITY MERCEDES APRN) Physical Exam Physical Exam Constitutional: Well developed, well nourished, no acute distress, non-toxic appearance. Patient is complaint of pain exceeds physical examination findings. HENT: Normocephalic, atraumatic, bilateral external ears normal, oropharynx moist, no oral exudates, nose normal. Eyes: PERRLA, EOMI, conjunctiva normal, no discharge. Neck: Normal range of motion, no tenderness, supple, no stridor. Cardiovascular:Heart rate regular rhythm, no murmur Lungs & Thorax: Bilateral breath sounds clear to auscultation Abdomen: Bowel sounds normal, soft, no tenderness, no masses, no pulsatile masses. Skin: Warm, dry, no erythema, no rash. Back: No tenderness, no CVA tenderness. Extremities: No tenderness, no cyanosis, no clubbing, ROM intact, no edema. Neurologic: Alert and oriented X 3, normal motor function, normal sensory function, no focal deficits noted. Psychologic: Affect normal, judgement normal, mood normal. (CHASITY MERCEDES APRN) Current Patient Data Vital Signs Vital Signs Date Time Temp Pulse Resp B/P (MAP) Pulse Ox O2 Delivery O2 Flow Rate FiO2 07/27/20 18:26 98.9 73 18 128/71 (90) 97 Room Air (CHASITY MERCEDES APRN) EKG EKG [] (CHASITY MERCEDES APRN) Radiology/Procedures Radiology/Procedures REASON: SEVERE HEADACHE PROCEDURE: CT HEAD WO CONTRAST CT head without contrast PQRS statement: CT scans at this facility use dose reduction including either automated exposure control, iterative reconstructions, and /or weight based radiation dosing via mA and kV modification when appropriate to reduce radiation dose to as low as reasonably achievable. HISTORY: Severe headache. FINDINGS: No intracranial hemorrhage, mass, hydrocephalus, extra-axial fluid collections or infarction. No acute ischemic change. Orbits, mastoids and bones are unremarkable. IMPRESSION: Normal exam. Electronically signed by: Justina Velasquez MD (07/27/2020 7:57 PM) [facility] [place]ATED AND SIGNED BY: JUSTINA VELASQUEZ MD DATE: 07/27/201956 CC: CHASITY MERCEDES APRN; CHANTAL LANGSTON (CHASITY MERCEDES APRN) Heart Score Risk Factors: Risk Factors: DM, Current or recent (<one month) smoker, HTN, HLP, family history of CAD, obesity. Risk Scores: Risk Factors: DM, Current or recent (<one month) smoker, HTN, HLP, family history of CAD, obesity. (CHASITY MERCEDES APRN) Course & Med Decision Making Course & Med Decision Making Pertinent Labs and Imaging studies reviewed. (See chart for details) 35-year-old patient presents to the ER today returning for her second visit, complaining of the worst headache of her life, patient states she has had this for the past 3 weeks and can get no relief from any medication she has been given. Patient states that the previous physician that seen her only gave her 4 of morphine and then discharged her home. Patient states that her doctor more or less blew her off and sent her to have an appointment with neurology which she cannot get into see until September 2020. Patient describes her headache as the worst pain she has ever had, however she also states that her headache is no different than her previous headaches. Patient is physical examination was unremarkable. Patient was not photophobic, patient's vital signs were within normal limits. An IV was established and patient was given 4 of Zofran IV, 50 mg of Benadryl IV, p.o. Imitrex, 1 L of normal saline. A CT of the head was performed, house radiologist read as negative no acute process. Discussed findings with patient, patient then revealed that she has a genetic predisposition to where she requires twice the amount of pain medicine above what a normal person would need. Patient was given a milligram of Dilaudid for her 10/10 pain on a 1-10 pain scale. Upon reexamination patient states that there is no change in her pain, discussed with patient that she would need to follow-up with her physician tomorrow if she required more pain medication at home. Patient asked if she can get 1 more milligram of Dilaudid prior to her discharge. Patient was given 1 more milligram of Dilaudid, discussed with patient drug-seeking behaviors, patient's headache is probably related to this as patient is complaints of pain exceeded her physical exam and ER work-up. Patient gave verbal understanding of need to follow-up tomorrow with primary care physician, patient given instructions for return to ER concerns, patient had no further questions or concerns, patient discharged home without incident. (CHASITY MERCEDES APRN) Dragon Disclaimer Dragon Disclaimer This electronic medical record was generated, in whole or in part, using a voice recognition dictation system. (CHASITY MERCEDES APRN) Attending Co-Sign The patient was seen and interviewed as well as examined at the bedside. The chart was reviewed. The case was discussed. Agree with the plan of care. (ELVIRA DÍAZ DO) Departure Departure: Impression: Primary Impression: Headache Additional Impression: Drug-seeking behavior Disposition: 01 DC HOME SELF CARE/HOMELESS Condition: IMPROVED Referrals: CHANTAL LANGSTON (PCP) Patient Instructions: General Headache Without Cause Additional Instructions: Follow-up with your doctor tomorrow regarding your chronic headaches. A CAT scan was performed and it did not show any concerns. You are not having a stroke, there are no tumors in your brain. Please keep your appointment with neurology. Return to emergency department for worsening concerns and/or worsening symptoms. EMERGENCY DEPARTMENT GENERAL DISCHARGE INSTRUCTIONS Thank you for coming to [facility] (ED) today and trusting us with you care. We trust that you had a positivie experience in our Emergency Department. If you wish to speak to the department management, you may call the director at [phone]. YOUR FOLLOW UP INSTRUCTIONS ARE FOLLOWS: 1. Do you have a private Doctor? If you do not have a private doctor, please ask for a resource list of physicians or clinics that may be able to assist you with f ollow up care. 2. The Emergency Physician has interpreted your x-rays. The X-Ray specialist will also review them. If there is a change in the findings, you will be notified in 48 hours when at all possible. 3. A lab test or culture has been done, your results will be reviewed and you will be notified if you need a change in treatment. ADDITIONAL INSTRUCTIONS AND INFORMATION: 1. Your care today has been supervised by a physician who is specially trained in emergency care. Many problems require more than one evaluation for a complete diagnosis and treatment. We recommend that you schedule your follow up appointment as recommended to ensure complete treatment of you illness or injury. If you are unable to obtain follow up care and continue to have a problem, or if your condition worsens, we recommend that you return to the ED. 2. We are not able to safely determine your condition over the phone nor are we able to give sound medical advice over the phone. For these safety reasons, if you call for medical advice we will ask you to come to the ED for further evaluation. 3. If you have any questions regarding these discharge instructions please call the ED at [phone]. SAFETY INFORMATION: In the interest of safety, wellness, and injury prevention; we encourage you to wear your sealbelt, if you smoke; quite smoking, and we encourage family to use a protect verito helmet for bicycling and other sporting events that present an increased risk for head injury. IF YOUR SYMPTOMS WORSEN OR NEW SYMPTOMS DEVELOP, OR YOU HAVE CONCERNS ABOUT YOUR CONDITION; OR IF YOUR CONDITION WORSENS WHILE YOU ARE WAITING FOR YOUR FOLLOW UP APPOINTMENT; EITHER CONTACT YOUR PRIMARY CARE DOCTOR, THE PHYSICIAN WHOSE NAME AND NUMBER YOU WERE GIVEN, OR RETURN TO THE ED IMMEDIATELY. Scripts Ibuprofen (IBUPROFEN) 200 Mg Tablet 600 MG PO QIDPRN PRN for PAIN, #15 TAB 0 Refills Prov: MAGOCHASITY FLORES 07/27/20 Problem Qualifiers Primary Impression: Headache Headache type: unspecified Headache chronicity pattern: chronic headache Intractability: intractable Qualified Codes: R51.9 - Headache, unspecifie d; G89.29 - Other chronic pain CHASITY MERCEDES APRN Jul 27, 2020 19:12 ELVIRA DÍAZ DO Jul 28, 2020 05:47
[2020-07-27] MEDS ORDERED: ONDANSETRON PF 4 MG/2 ML VIAL. IVP ONE (19:15)
--- NOTE | 2020-07-27 20:00 | RAD ---
CT head without contrast PQRS statement: CT scans at this facility use dose reduction including either automated exposure control, iterative reconstructions, and /or weight based radiation dosing via mA and kV modification when appropriate to reduce radiation dose to as low as reasonably achievable. HISTORY: Severe headache. FINDINGS: No intracranial hemorrhage, mass, hydrocephalus, extra-axial fluid collections or infarction. No acute ischemic change. Orbits, mastoids and bones are unremarkable. IMPRESSION: Normal exam. Electronically signed by: Feliberto Velasquez MD (07/27/2020 7:57 PM) [facility]
[2020-07-27] MEDS ORDERED: HYDROmorphone PF 1 MG/ML DISP.SYRIN IVP ONE ×2 (20:30→22:00)
[2020-07-27] MEDS ORDERED: IBUP-1673 PO (22:15)
[2020-07-27 22:30] VITALS: BP 108/65
== END 2020-07-27 22:30 | disposition home or self-care (01) ==
LOC: ER 18:11
DX: G43.909 Migraine, unspecified, not intractable, without status migrainosus (principal); G89.29 Other chronic pain; Z76.5 Malingerer [conscious simulation]; F41.9 Anxiety disorder, unspecified; M19.90 Unspecified osteoarthritis, unspecified site; M79.7 Fibromyalgia; I10 Essential (primary) hypertension; E03.9 Hypothyroidism, unspecified; Z95.0 Presence of cardiac pacemaker; Z87.891 Personal history of nicotine dependence; Z88.5 Allergy status to narcotic agent; Z88.2 Allergy status to sulfonamides; Z88.1 Allergy status to other antibiotic agents; Z88.8 Allergy status to other drugs, medicaments and biological substances
CPT/HCPCS: 70450; 96361; 96374; 96375; 96376; 99285; J1170; J1200; J2405; J7030

== ENCOUNTER 2020-08-02 18:03 | Emergency (ER) | payer BC ==
[~2020-08-02] VITALS: Ht 162.6 cm; Wt 107.0 kg
[~2020-08-02 18:03] MED LIST changes: +IBUP-1673 PO
[2020-08-02 18:20] VITALS: BP 146/79
--- NOTE | 2020-08-02 19:01 | PHYS DOC ---
Past History Past Medical History: Anxiety, Arthritis, Arrhythmia, Depression, Fibromyalgia, Hypertension, Hypothyroid, Migraines, Other Additional Past Medical Histor: past Ht of SVT, endometriosis. Past Surgical History: Appendectomy, Cholecystectomy, , Pacemaker, Tonsillectomy, Other Additional Past Surgical Histo: Cardiac ablation x 2; bilat ankle; colon Smoking: Quit Greater Than 1 Year Alcohol Use: None Drug Use: None Adult General Chief Complaint Chief Complaint: HEADACHE HPI HPI Patient is a 35yo female presenting for headache. She was recently discharged from [facility] for suspect meningitis 72 hours ago. Patient reports presenting to their facility and having extensive workup including lumbar puncture that was grossly unremarkable. She denies any known pathology reporting. she was discharged without any medication with close PCP follow up. She reports mild improvement with [facility] intervention but admits headache has returned in past 24 hours without any inciting event/trauma. No fever, no vision changes or syncope, chest pain, sob, ap, urinary symptoms or changes in bladder or bowel function. Review of Systems Review of Systems Fourteen body systems of review of systems have been reviewed. See HPI for pertinent positives and negative responses, other dow all other systems are negative, non-pertinent or non-contributory Allergies Allergies Allergies Coded Allergies Type Severity Reaction Last Updated Verified codeine Allergy Unknown 08/02/20 Yes metoclopramide Adverse Reaction Intermediate anxiety 08/02/20 Yes prochlorperazine Adverse Reaction Intermediate anxiety 08/02/20 Yes sulfamethoxazole Adverse Reaction Unknown MIGRAIN 08/02/20 Yes trimethoprim Adverse Reaction Unknown MIGRAIN 08/02/20 Yes Physical Exam Physical Exam Constitutional: Well developed, well nourished, no acute distress, non-toxic appearance. HENT: Normocephalic, atraumatic, bilateral external ears normal, oropharynx moist, no oral exudates, nose normal. Eyes: PERRLA, EOMI, conjunctiva normal, no discharge. Neck: Normal range of motion, no tenderness, supple, no stridor. Negative Kernig and Brudzinski, no obvious meningeal signs Cardiovascular: Heart rate regular, sinus rhythm, no murmurs rubs or gallops Lungs & Thorax: Bilateral breath sounds clear to auscultation Abdomen: Bowel sounds normal, soft, no tenderness, no masses, no pulsatile masses. Nonsurgical abdomen, no peritoneal signs Skin: Warm, dry, no erythema, no rash. Back: No tenderness, no CVA tenderness. Extremities: No tenderness, no cyanosis, no clubbing, ROM intact, no edema. Neurologic: Alert and oriented X 3, CN 2-12 intact, normal motor & sensory function, no focal deficits noted. Psychologic: Affect normal, judgement normal, anxious mood Current Patient Data Vital Signs Vital Signs Date Time Temp Pulse Resp B/P (MAP) Pulse Ox O2 Delivery O2 Flow Rate FiO2 08/02/20 18:20 99.1 84 22 146/79 (101) 96 EKG EKG [] Radiology/Procedures Radiology/Procedures PROCEDURE: CT HEAD WO CONTRAST CT Head W/O Contrast: History: Reason: quach with recent viral meningitis / Spl. Instructions: / History: Comparison: July 27, 2020 Axial images were obtained without contrast. The chapin and white matter appears normal and symmetrical for the patients age. There is no mass effect, extraaxial fluid collections or hydrocephalus. There is no gross bleed. There is no focal loss of chapin-white matter distinction to suggest acute ischemia, i.e. stroke. Impression: No acute findings. PQRS Compliance Statement: One or more of the following individualized dose reduction techniques were utilized for this examination: 1. Automated exposure control 2. Adjustment of the mA and/or kV according to patient size 3. Use of iterative reconstruction technique Electronically signed by: Gilbert Rossi III, MD (08/02/2020 7:26 PM) [facility] Heart Score HEART Score for Chest Pain: HEART Score for Chest Pain Response (Comments) Value History Slighlty/Non-Suspicious 0 Age < 45 0 Risk Factors No Risk Factors 0 Total 0 Risk Factors: Risk Factors: DM, Current or recent (<one month) smoker, HTN, HLP, family history of CAD, obesity. Risk Scores: Risk Factors: DM, Current or recent (<one month) smoker, HTN, HLP, family history of CAD, obesity. Course & Med Decision Making Course & Med Decision Making Pertinent Labs and Imaging studies reviewed. (See chart for details) I called [facility] and discussed fiore-negative workup that included blood/lab analysis, lumbar puncture, CT and MRI/venogram head and neck Workup today grossly unremarkable, no emergent/surgical pathology present. I recommended repeat lumbar puncture but patient declined I offered treatment for QUACH of unknown origin with Dexamethasone and Haldol with mod improvement in symptoms. Patient monitored in ED without any obvious signs of clinical deterioration. Patient ultimately improved enough and felt she was fit to go home. I disclosed I could not definitively rule out meningitis among other pathology without lumbar puncture but patient still deferring I advised her to continue supportive care practices and follow up with PCP and discuss need for neurology consult in upcoming 72 hours Strict return precautions discussed with good understanding, all questions and concerns addressed prior to DC in improved condition Dragon Disclaimer Dragon Disclaimer This electronic medical record was generated, in whole or in part, using a voice recognition dictation system. Departure Departure: Impression: Primary Impression: Headache Disposition: DC HOME SELF CARE/HOMELESS Condition: IMPROVED Referrals: CHANTAL LANGSTON (PCP) Patient Instructions: General Headache Without Cause Additional Instructions: As discussed prior to ER departure, please call your primary care physician for symptomatic schedule outpatient follow-up for repeat examination in upcoming 72 hours Please utilize the information below to discuss need for neurology referral with your primary care physician. I would recommend seeing Dr. Okeefe at [facility] - Neurology - [address], [address] [place] [address] If any concerning signs or symptoms were present prior to outpatient follow-up please do not hesitate to come back for repeat examination It was a pleasure to take care of you and I wish you the best going forward UTE SR DO Aug 02, 2020 19:01
--- NOTE | 2020-08-02 19:29 | RAD ---
CT Head W/O Contrast: History: Reason: rajan with recent viral meningitis / Spl. Instructions: / History: Comparison: July 27, 2020 Axial images were obtained without contrast. The chapin and white matter appears normal and symmetrical for the patients age. There is no mass effect, extraaxial fluid collections or hydrocephalus. There is no gross bleed. There is no focal loss of chapin-white matter distinction to suggest acute ischemia, i.e. stroke. Impression: No acute findings. RS Compliance Statement: One or more of the following individualized dose reduction techniques were utilized for this examination: 1. Automated exposure control 2. Adjustment of the mA and/or kV according to patient size 3. Use of iterative reconstruction technique Electronically signed by: Gilbert Rossi III, MD (08/02/2020 7:26 PM) [facility]
[2020-08-02] MEDS ORDERED: DEXAMETHASONE SOD PHOS 10 MG/ML VIAL. IV ONE (19:30)
[2020-08-02] MEDS ORDERED: HALOPERIDOL LACT 5 MG/ML VIAL. IVP ONE (19:30)
[2020-08-02] MEDS ORDERED: IV NORMAL SALINE 1,000ML 1,000 ML IV ONE (19:30)
== END 2020-08-02 20:19 | disposition home or self-care (01) ==
LOC: ER 18:03
DX: G43.909 Migraine, unspecified, not intractable, without status migrainosus (principal); F41.9 Anxiety disorder, unspecified; M19.90 Unspecified osteoarthritis, unspecified site; M79.7 Fibromyalgia; I10 Essential (primary) hypertension; E03.9 Hypothyroidism, unspecified; Z87.891 Personal history of nicotine dependence; Z95.0 Presence of cardiac pacemaker; Z88.5 Allergy status to narcotic agent; Z88.2 Allergy status to sulfonamides; Z88.1 Allergy status to other antibiotic agents; Z88.8 Allergy status to other drugs, medicaments and biological substances
CPT/HCPCS: 70450; 87040; 96374; 96375; 99284; J1100; J1630; J7030; 96361

== ENCOUNTER 2020-10-11 13:32 | Emergency (ER) | payer BC ==
[~2020-10-11] VITALS: Ht 162.6 cm; Wt 109.4 kg
[2020-10-11 13:55] VITALS: BP 104/64
[2020-10-11] MEDS ORDERED: ORPH-16 PO (14:37)
[2020-10-11] MEDS ORDERED: LIDO700A21 TP (14:37)
[2020-10-11] MEDS ORDERED: OXYC5TAB4 PO (14:37)
--- NOTE | 2020-10-11 14:37 | PHYS DOC ---
Past History Past Medical History: Anxiety, Arthritis, Arrhythmia, Depression, Fibromyalgia, Hypertension, Hypothyroid, Migraines, Other Additional Past Medical Histor: past Ht of SVT, endometriosis. chronic back pain Past Surgical History: Appendectomy, Cholecystectomy, , Pacemaker, Tonsillectomy, Other Additional Past Surgical Histo: Cardiac ablation x 2; bilat ankle; colon Smoking: Quit Greater Than 1 Year Alcohol Use: Occasionally Drug Use: None General Adult EDM: Chief Complaint: LOWER BACK PAIN OR INJURY HPI: HPI: Patient is a 35 year old female who presents with low back pain. She has a PMH significant for obesity, implanted pacemaker 2009, hypothyroid, depression/anxiety, colectomy, cholecystectomy, x3. She states was diagnosed with a bilateral pars defect and spondylolisthesis in 2014. On Sunday morning she woke up with a constant 10/10 nonradiating pain in her lower back. She feels the pain is in the center of her lower lumbar region, and states it worse on the left compared to the right. Her pain worsens in extension more than flexion and with rotation to both the left and right equally. She has tried ice, heat, icy hot, OTC aleve, ibuprofen and tylenol without relief. She denies changes in/lack of control over bladder or bowel, denies numbness, tingling or changes in sensation to lower extremities, fever, chill, nausea, vomiting, constipation, diarrhea. She had a uterine ablation and take OC for endometriosis. Review of Systems: Review of Systems: Constitutional: Denies fever or chills HENT: Denies nasal congestion or sore throat Respiratory: Denies cough or shortness of breath Cardiovascular: Denies chest pain or palpitations GI: Denies abdominal pain, nausea, or vomiting : Denies dysuria or hematuria, incontinence Musculoskeletal: Admits back pain. Denies joint pain out of normal range for patient Integument: Denies rash or skin lesions Neurologic: Denies headache, focal weakness or sensory changes Complete systems were reviewed and found to be within normal limits, except as documented in this note. Allergies: Allergies: Allergies Coded Allergies Type Severity Reaction Last Updated Verified codeine Allergy Unknown 08/02/20 Yes haloperidol Allergy Unknown 10/11/20 Yes metoclopramide Adverse Reaction Intermediate anxiety 08/02/20 Yes prochlorperazine Adverse Reaction Intermediate anxiety 08/02/20 Yes sulfamethoxazole Adverse Reaction Unknown MIGRAIN 08/02/20 Yes trimethoprim Adverse Reaction Unknown MIGRAIN 08/02/20 Yes Physical Exam: PE: Constitutional: Well developed, obese, mild distress second to pain, non-toxic appearance HENT: Normocephalic, atraumatic Eyes: PERRL, EOMI, conjunctiva normal, no discharge Neck: Normal range of motion, no tenderness, supple Lungs & Thorax: No respiratory distress, equal chest rise and fall Abdomen: Soft, no tenderness Skin: Warm, dry, no erythema, no rash Back: No spinal tenderness, no CVA tenderness. Tender to palpation along left lumbar region L3-L5. Positive straight leg test bilaterally. ROM reduced in Flexion,extension, rotation, sidebending 2/2 pain Extremities: No tenderness, ROM intact, no edema. Sensation intact b/l. 2+ pedal pulses b/l Neurologic: Alert and oriented X 3, normal motor function, normal sensory function, no focal deficits noted Psychologic: Affect normal, judgment normal Current Patient Data: Vital Signs: Vital Signs Date Time Temp Pulse Resp B/P (MAP) Pulse Ox O2 Delivery O2 Flow Rate FiO2 10/11/20 13:55 98.8 62 20 104/64 (77) 99 Room Air EKG: EKG: [] Radiology/Procedures: Radiology/Procedures: [] Course & Med Decision Making: Course & Med Decision Making This 35 yom female presents POV to the ED with acute on chronic atraumatic low back. She states she was diagnosed with bilateral pars defect at L5 and spondylolisthesis. She woke up Sunday morning with bilateral low back pain that is worse on the left than the right. She denies trauma. She denies bowel or urinary incontinence, fever, chill, changes in sensation, radicular pain. The patient engaged in shared decision making process and was provided with a dose of dexamethasone for inflammation in the ED and prescribed oxycodone, norflex and lidocaine patches for symptomatic relief. The patient follows with a extracorporeal circulation specialist at and plans to follow up with her. She was also provided with a referral for pain management. Patient stable for discharge with outpatient follow-up with PCP. Discussed findings and plan with patient, who acknowledges understanding and agreement. Jovanni Disclaimer: Jovanni Disclaimer: This electronic medical record was generated, in whole or in part, using a voice recognition dictation system. Departure Departure: Impression: Primary Impression: Back pain Qualified Codes: M54.5 - Low back pain Disposition: 01 DC HOME SELF CARE/HOMELESS Condition: STABLE Referrals: CHANTAL LANGSTON (PCP) Patient Instructions: Back Pain, Adult, [id number], Chronic Back Pain, Chronic Pain Management Additional Instructions: ICE area 20 min on then leave off next 20 mins. Repeat several times daily as needed for pain. May think about adding heat after 72 hours. May also use over the counter Tylenol and/or Ibuprofen for pain or discomfort. Call Dr. Yousif Brice (pain management) Address: [address] [address], [place] [address] Scripts Oxycodone Hcl (OXYCODONE HCL IMMED.RELEASE ) 5 Mg Tablet 0.5-1 TAB PO PRN Q6HRS PRN for PAIN, #10 TAB Prov: CHSAITY VILLALOBOS DO 10/11/20 Lidocaine (Lidocaine PATCH ) 1 Each Adh..patch 1 EACH TP DAILY for FOR LOCAL PAIN, #14 PATCH REMOVE AFTER 12 HOURS Prov: CHASITY VILLALOBOS DO 10/11/20 Orphenadrine Citrate (ORPHENADRINE CITRATE) 100 Mg Tablet.er 1 TAB PO BID PRN for MUSCLE PAIN, #14 TAB 0 Refills Prov: CHASITY VILLALOBOS DO 10/11/20 CHASITY VILLALOBOS DO Oct 11, 2020 14:37
[2020-10-11] MEDS ORDERED: DEXAMETHASONE 4 MG TABLET PO ONE (14:45)
== END 2020-10-11 14:50 | disposition home or self-care (01) ==
LOC: ER 13:32
DX: M54.5 Low back pain (principal); F41.9 Anxiety disorder, unspecified; M19.90 Unspecified osteoarthritis, unspecified site; M79.7 Fibromyalgia; I10 Essential (primary) hypertension; E03.9 Hypothyroidism, unspecified; G43.909 Migraine, unspecified, not intractable, without status migrainosus; G89.29 Other chronic pain; Z87.891 Personal history of nicotine dependence; Z90.89 Acquired absence of other organs; Z90.49 Acquired absence of other specified parts of digestive tract; Z98.890 Other specified postprocedural states; Z95.0 Presence of cardiac pacemaker; Z88.5 Allergy status to narcotic agent; Z88.1 Allergy status to other antibiotic agents; Z88.8 Allergy status to other drugs, medicaments and biological substances
CPT/HCPCS: 99283; J8540

== ENCOUNTER 2021-01-28 22:59 | Emergency (ER) | payer BC ==
[~2021-01-28] VITALS: Ht 162.6 cm; Wt 109.4 kg
[~2021-01-28 22:59] MED LIST changes: +LIDO700A21 TP; +ORPH-16 PO; +OXYC5TAB4 PO
[2021-01-28] MEDS ORDERED: METO-247 PO (23:10)
[2021-01-28] MEDS ORDERED: LISD50CA3 PO (23:11)
--- NOTE | 2021-01-28 23:41 | EKG ---
[address] [address] Test Date: 2021-01-28 Test Time: 23:26:20 Pat Name: FORTINO CH Department: Room: Gender: F Electrolytic De Scaler: ALYSSA : 1985 Requested By: SEAN ZHANG Order Number: [id number] Reading MD: Measurements Intervals [place] Rate: 60 P: 65 PA: 178 QRS: 13 QRSD: 78 T: 40 QT: 406 QTc: 406 Interpretive Statements SINUS RHYTHM NORMAL ECG RI6.02 Compared to ECG 01/28/2021 23:24:36 T-wave abnormality no longer present Possible ischemia no longer present
--- NOTE | 2021-01-28 23:42 | RAD ---
INDICATION: Reason: CHEST PAIN, HX PACEMAKER / Spl. Instructions: / History: COMPARISON: July 27, 2020 FINDINGS: Single view of chest obtained. Cardiac silhouette is unremarkable. Pacemaker is seen. No definite focal airspace consolidation. Haziness at left lung base may be secondary to overlap of s oft tissue structures. IMPRESSION: * No definite focal airspace consolidation. Electronically signed by: Christopher Sims MD (01/28/2021 11:40 PM) [id number]
[2021-01-28] MEDS: ACETAMINOPHEN 500 MG TABLET PO ONE (23:45)
[2021-01-28 23:57] LABS: HEMATOCRIT 39.9 % (36.0-47.0); HEMOGLOBIN 13.9 g/dL (12.0-15.5); RED BLOOD COUNT 4.27 x10^6/uL (3.50-5.40); RED CELL DISTRIBUTION WIDTH 12.2 % (11.5-14.5); WHITE BLOOD COUNT 4.2 x10^3/uL (4.0-11.0)
[2021-01-29] MEDS: KETOROLAC 15 MG/ML VIAL. IVP ONE (00:02)
[2021-01-29 00:03] LABS: CREATININE 0.8 mg/dL (0.6-1.0); GFR 81.6; POTASSIUM 4.4 mmol/L (3.5-5.1)
[2021-01-29 00:10] LABS: ALBUMIN 3.5 g/dL (3.4-5.0); ALBUMIN/GLOBULIN RATIO 0.9 (1.0-1.7); TOTAL BILIRUBIN 0.4 mg/dL (0.2-1.0); TOTAL PROTEIN 7.3 g/dL (6.4-8.2)
[2021-01-29 00:30] VITALS: BP 117/75
[2021-01-29] MEDS ORDERED: HYDR-2155 PO (00:43)
--- NOTE | 2021-01-29 00:43 | PHYS DOC ---
Past History Past Medical History: Anxiety, Arthritis, Arrhythmia, Depression, Fibromyalgia, Heart Disease, Hypertension, Hypothyroid, Migraines, Other Additional Past Medical Histor: past Ht of SVT, endometriosis. chronic back pain Past Surgical History: Appendectomy, Cholecystectomy, , Pacemaker, Tonsillectomy, Other Additional Past Surgical Histo: Cardiac ablation x 2; bilat ankle; colon Smoking: Quit Greater Than 1 Year Alcohol Use: Occasionally Drug Use: None Adult General Chief Complaint Chief Complaint: CHEST PAIN HPI HPI Patient is a 35-year-old female with a past medical history significant for anxiety, depression and esophageal spasm who presents to the emergency department with a chief complaint of chest pain. States that a couple hours before coming to the emergency department she was sitting watching TV and had some substernal, sharp chest pain, 7 out of 10 with no radiation. Denies any diaphoresis, shortness of breath/dyspnea on exertion, PND, orthopnea or edema. Denies any abdominal pain, nausea, vomiting, dysuria, hematuria or blood in the stool. States that here in the emergency department the pain is actually almost gone. States she takes muscle relaxers and calcium channel blockers for her esophageal spasm. States that with this feels like and she has not had an episode in a while. Review of Systems Review of Systems Review of systems otherwise unremarkable except noted in HPI Current Medications Current Medications Current Medications Medications (Trade) Dose Ordered Sig/Walter Start Time Stop Time Status Last Admin Dose Admin Acetaminophen (Tylenol) 1,000 mg 1X ONCE 01/28/21 23:45 01/28/21 23:46 DC Ketorolac Tromethamine (Toradol 15mg Vial) 15 mg 1X ONCE 01/28/21 23:45 01/28/21 23:46 DC 01/29/21 00:02 15 MG Morphine Sulfate (Morphine 4mg Syringe) 4 mg 1X ONCE 01/29/21 00:30 01/29/21 00:31 UNV Allergies Allergies Allergies Coded Allergies Type Severity Reaction Last Updated Verified codeine Allergy Unknown 08/02/20 Yes haloperidol Allergy Unknown 10/11/20 Yes metoclopramide Adverse Reaction Intermediate anxiety 08/02/20 Yes prochlorperazine Adverse Reaction Intermediate anxiety 08/02/20 Yes sulfamethoxazole Adverse Reaction Unknown MIGRAIN 08/02/20 Yes trimethoprim Adverse Reaction Unknown MIGRAIN 08/02/20 Yes Physical Exam Physical Exam Constitutional: Well developed, well nourished, no acute distress, non-toxic appearance. [] HENT: Normocephalic, atraumatic, bilateral external ears normal, oropharynx moist, no oral exudates, nose normal. [] Eyes: conjunctiva normal, no discharge. [] Neck: Normal range of motion, no tenderness, supple, no stridor. [] Cardiovascular:Heart rate regular rhythm, no murmur [] Lungs & Thorax: Bilateral breath sounds clear to auscultation [] Abdomen: soft, no tenderness, no masses, no pulsatile masses. [] Skin: Warm, dry, no erythema, no rash. [] Back: No tenderness, no CVA tenderness. [] Extremities: No tenderness, no cyanosis, no clubbing, ROM intact, no edema. [] Neurologic: Alert and oriented X 3, normal motor function, normal sensory function, no focal deficits noted. [] Psychologic: Affect normal, judgement normal, mood normal. [] Current Patient Data Vital Signs Vital Signs Date Time Temp Pulse Resp B/P (MAP) Pulse Ox O2 Delivery O2 Flow Rate FiO2 01/28/21 23:05 99.4 62 22 125/65 (85) 97 Room Air Lab Results Laboratory Tests Test 01/28/21 23:20 01/29/21 00:13 White Blood Count 4.2 x10^3/uL (4.0-11.0) Red Blood Count 4.27 x10^6/uL (3.50-5.40) Hemoglobin 13.9 g/dL (12.0-15.5) Hematocrit 39.9 % (36.0-47.0) Mean Corpuscular Volume 93 fL (79-100) Mean Corpuscular Hemoglobin 33 pg (25-35) Mean Corpuscular Hemoglobin Concent 35 g/dL (31-37) Red Cell Distribution Width 12.2 % (11.5-14.5) Platelet Count 141 x10^3/uL (140-400) Sodium Level 138 mmol/L (136-145) Potassium Level 4.4 mmol/L (3.5-5.1) Chloride Level 104 mmol/L (98-107) Carbon Dioxide Level 24 mmol/L (21-32) Anion Gap 10 (6-14) Blood Urea Nitrogen 8 mg/dL (7-20) Creatinine 0.8 mg/dL (0.6-1.0) Estimated GFR (Cockcroft-Gault) 81.6 BUN/Creatinine Ratio 10 (6-20) Glucose Level 113 mg/dL (70-99) H Calcium Level 9.0 mg/dL (8.5-10.1) Total Bilirubin 0.4 mg/dL (0.2-1.0) Aspartate Amino Transferase (AST) 36 U/L (15-37) Alanine Aminotransferase (ALT) 40 U/L (14-59) Alkaline Phosphatase 83 U/L (46-116) Troponin I Quantitative < 0.017 ng/mL (0-0.055) Total Protein 7.3 g/dL (6.4-8.2) Albumin 3.5 g/dL (3.4-5.0) Albumin/Globulin Ratio 0.9 (1.0-1.7) L POC Urine HCG, Qualitative hcg negative (Negative) EKG EKG [] Radiology/Procedures Radiology/Procedures [] Heart Score C/O Chest Pain: Yes HEART Score for Chest Pain: HEART Score for Chest Pain Response (Comments) Value History Slighlty/Non-Suspicious 0 ECG Normal 0 Age < 45 0 Risk Factors 1 or 2 Risk Factors 1 Troponin < Normal Limit 0 Total 1 Risk Factors: Risk Factors: DM, Current or recent (<one month) smoker, HTN, HLP, family history of CAD, obesity. Risk Scores: Risk Factors: DM, Current or recent (<one month) smoker, HTN, HLP, family history of CAD, obesity. Course & Med Decision Making Course & Med Decision Making Patient is a 35-year-old female who presents with a chief complaint of chest pain, concern for esophageal spasm Vital signs not concerning. Physical exam noted above. EKG noted above and normal. Troponin normal. Low risk Wells. PERC negative. Given pain medicine in the emergency department. Laboratory analysis not concerning. Urinalysis not concerning. Negative . Pain controlled in the ED. Discussed all findings with patient advised to follow-up with primary care physician as soon as she can to set up a follow-up visit. Gave return precautions to the ED. Patient grateful, verbalized understanding and agreed with plan of discharge. [] Dragon Disclaimer Dragon Disclaimer This electronic medical record was generated, in whole or in part, using a voice recognition dictation system. Departure Departure: Impression: Primary Impression: Chest pain Disposition: HOME / SELF CARE / HOMELESS Condition: GOOD Referrals: CHANTAL LANGSTON (PCP) Patient Instructions: Chest Pain (Nonspecific) Additional Instructions: Please read all the attached information very carefully. As discussed, please take all your medications as prescribed. Please use the pain regimen discussed in the emergency department. Please call your primary care physician first thing Sunday morning to discuss your ED visit and set up a follow-up visit. Please come back to the ED with new or concerning symptoms as discussed. Scripts Hydrocodone Bit/Acetaminophen (HYDROCODONE-APAP 5-325 ) 1 Each Tablet 1 TAB PO BID PRN for chest pain for 3 Days, #6 TAB 0 Refills Prov: SEAN ZHANG MD 01/29/21 SEAN ZHANG MD January 29, 2021 00:43
[2021-01-29] MEDS: MORPHINE SULFATE 4 MG/ML DISP.SYRIN. IV ONE (00:45)
[2021-01-29 01:01] LABS: BILIRUBIN,URINE NEG (NEG); CLARITY,URINE CLEAR; COLOR,URINE YELLOW; GLUCOSE,URINE NEG (NEG); NITRITE,URINE NEG (NEG); UROBILINOGEN,URINE 0.2 mg/dL (0.2 mg/dL)
[2021-01-29 01:02] LABS: BACTERIA,URINE 0 /HPF (0-FEW); RBC,URINE 0 /HPF (0-2); SQUAMOUS EPITHELIAL CELL,UR OCC /LPF; WBC,URINE 0 /HPF (0-4)
== END 2021-01-29 00:59 | disposition home or self-care (01) ==
LOC: ER 22:59
DX: R07.89 Other chest pain (principal); F41.9 Anxiety disorder, unspecified; F32.9 Major depressive disorder, single episode, unspecified; Z88.6 Allergy status to analgesic agent; Z88.2 Allergy status to sulfonamides; Z88.8 Allergy status to other drugs, medicaments and biological substances
CPT/HCPCS: 36415; 71045; 80053; 81001; 81025; 84484; 85027; 93005; 96374; 96375; 99285; J1885; J2270

== ENCOUNTER 2021-05-05 06:02 | Emergency (ER) | payer BC ==
[~2021-05-05] VITALS: Ht 162.6 cm; Wt 109.4 kg
[~2021-05-05 06:02] MED LIST changes: +HYDR-2155 PO; +LISD50CA3 PO; +METO-247 PO
--- NOTE | 2021-05-05 06:37 | PHYS DOC ---
Past History Past Medical History: Anxiety, Arthritis, Arrhythmia, Depression, Fibromyalgia, Heart Disease, Hypertension, Hypothyroid, Migraines, Other Additional Past Medical Histor: past Ht of SVT, endometriosis. chronic back pain Past Surgical History: Appendectomy, Cholecystectomy, , Pacemaker, Tonsillectomy, Other Additional Past Surgical Histo: Cardiac ablation x 2; bilat ankle; colon Smoking: Quit Greater Than 1 Year Alcohol Use: Occasionally Drug Use: None Adult General Chief Complaint Chief Complaint: LOSS OF CONSCIOUSNESS [facility] HPI Patient is a 35-year-old female presenting for syncopal episode. Reports numerous comorbid conditions most pertinent including tachyarrhythmia requiring pacemaker placement. She is established at [facility] with cardiology and other subspecialist. Reports she has been at baseline health but the last 2 weeks she has had increased episodes of presyncopal symptoms. Symptoms occur primarily when changing position. Also cites for past 72 hours having lower blood pressures than usual causing her to hold her daily beta-anitha. She reports systolic pressures being lower than 120 which is unusual for her. No recent sick contacts, changes in medications, recent travel. Reports this morning she changed position from a laying to a standing position when she got lightheaded and fell forward hitting her head. She reports she cannot remember the event and concerned she lost consciousness. Reports having a dull headache and neck pain on arrival today Review of Systems Review of Systems Fourteen body systems of review of systems have been reviewed. See HPI for pertinent positives and negative responses, other dow all other systems are negative, non-pertinent or non-contributory Current Medications Current Medications Current Medications Medications (Trade) Dose Ordered Sig/Walter Start Time Stop Time Status Last Admin Dose Admin Sodium Chloride 1,000 ml @ 1,000 mls/hr 1X ONCE 05/05/21 07:00 05/05/21 07:59 Allergies Allergies Allergies Coded Allergies Type Severity Reaction Last Updated Verified codeine Allergy Unknown 08/02/20 Yes haloperidol Allergy Unknown 10/11/20 Yes metoclopramide Adverse Reaction Intermediate anxiety 08/02/20 Yes prochlorperazine Adverse Reaction Intermediate anxiety 08/02/20 Yes sulfamethoxazole Adverse Reaction Unknown MIGRAIN 08/02/20 Yes trimethoprim Adverse Reaction Unknown MIGRAIN 08/02/20 Yes Physical Exam Physical Exam Constitutional: Well developed, well nourished, no acute distress, non-toxic appearance. HENT: Normocephalic, atraumatic, bilateral external ears normal, oropharynx moist, no oral exudates, nose normal. Eyes: PERRLA, EOMI, conjunctiva normal, no discharge. Neck: Normal range of motion, no meningeal signs or nuchal rigidity, supple, no stridor. No midline step-offs or palpable abnormalities but patient reports generalized pain with palpation mostly to bilateral cervical muscles Cardiovascular: Heart rate regular, sinus rhythm, no murmurs rubs or gallops Lungs & Thorax: Bilateral breath sounds clear to auscultation Abdomen: Bowel sounds normal, soft, no tenderness, no masses, no pulsatile masses. Nonsurgical abdomen, no peritoneal signs Skin: Warm, dry, no erythema, no rash. Back: No midline spinal tenderness, no CVA tenderness. Extremities: No tenderness, no cyanosis, no clubbing, ROM intact, no edema. Neurologic: Alert and oriented X 3, cranial nerves II through XII intact, normal motor & sensory function, no focal deficits noted. Psychologic: Affect normal, judgement normal, mood normal. Current Patient Data Vital Signs Vital Signs Date Time Temp Pulse Resp B/P (MAP) Pulse Ox O2 Delivery O2 Flow Rate FiO2 05/05/21 06:08 98.2 61 18 96/58 (71) 96 Room Air Lab Results Laboratory Tests Test 05/05/21 07:20 White Blood Count 6.5 x10^3/uL Red Blood Count 4.71 x10^6/uL Hemoglobin 15.1 g/dL Hematocrit 44.6 % Mean Corpuscular Volume 95 fL Mean Corpuscular Hemoglobin 32 pg Mean Corpuscular Hemoglobin Concent 34 g/dL Red Cell Distribution Width 12.3 % Platelet Count 175 x10^3/uL Neutrophils (%) (Auto) 63 % Lymphocytes (%) (Auto) 24 % Monocytes (%) (Auto) 10 % Eosinophils (%) (Auto) 2 % Basophils (%) (Auto) 1 % Neutrophils # (Auto) 4.1 x10^3uL Lymphocytes # (Auto) 1.6 x10^3/uL Monocytes # (Auto) 0.6 x10^3/uL Eosinophils # (Auto) 0.1 x10^3/uL Basophils # (Auto) 0.0 x10^3/uL Sodium Level 137 mmol/L Potassium Level 4.4 mmol/L Chloride Level 104 mmol/L Carbon Dioxide Level 22 mmol/L Anion Gap 11 Blood Urea Nitrogen 8 mg/dL Creatinine 0.6 mg/dL Estimated GFR (Cockcroft-Gault) 113.8 BUN/Creatinine Ratio 13 Glucose Level 126 mg/dL Calcium Level 8.6 mg/dL Total Bilirubin 0.5 mg/dL Aspartate Amino Transf (AST/SGOT) 299 U/L Alanine Aminotransferase (ALT/SGPT) 871 U/L Alkaline Phosphatase 114 U/L Troponin I Quantitative < 0.017 ng/mL Total Protein 6.9 g/dL Albumin 3.4 g/dL Albumin/Globulin Ratio 1.0 Current Medications Medications (Trade) Dose Ordered Sig/Walter Route PRN Reason Start Time Stop Time Status Last Admin Dose Admin Sodium Chloride 1,000 ml @ 1,000 mls/hr 1X ONCE IV 05/05/21 07:00 05/05/21 07:59 DC 05/05/21 07:51 Acetaminophen (Tylenol) 500 mg STK-MED ONCE PO 05/05/21 07:38 05/05/21 07:38 DC Acetaminophen (Tylenol) 1,000 mg 1X ONCE PO 05/05/21 08:00 05/05/21 08:01 DC 05/05/21 07:56 EKG EKG EKG ordered and interpreted by myself at 0655 hrs. as sinus rhythm at 60 bpm, unremarkable intervals, left axis deviation, no acute ischemic findings, no STEMI Radiology/Procedures Radiology/Procedures CT HEAD AND CERVICAL SPINE WITHOUT CONTRAST History: Reason: fall with loc to anterior head / Comparison: CT head without contrast August 02, 2020. Procedure: Axial images are obtained of the head from the skull base through the vertex without IV contrast. Noncontrast helical CT of the cervical spine was performed. Axial, sagittal, and coronal reconstructions were obtained. Findings: The ventricles and sulci are normal for the patient's age. No mass-effect, midline shift, hemorrhage or obvious acute infarction is identified. Basilar cisterns are patent. Bone windows demonstrate no significant calvarial abnormality. The visualized paranasal sinuses are clear. Mastoid air cells are well aerated. There is no evidence of acute fracture or acute malalignment of the cervical spine. The facet joints are intact. Straightening of normal cervical lordosis is likely due to c-collar. There is no disc space narrowing. The vertebral body height and alignment are maintained. The central canal is patent. Visualized soft tissues of the neck demonstrate no significant abnormalities. The visualized lung apices are clear. IMPRESSION: 1. No acute intracranial abnormality. 2. No acute fracture of the cervical spine. Electronically signed by: Jairo Duque MD (05/05/2021 6:58 AM) [facility] ///////////////////// EXAM: Abdomen sonogram. HISTORY: Transaminitis. TECHNIQUE: Sonographic imaging of the abdomen was performed. COMPARISON: None. FINDINGS: The liver is normal in size. No focal hepatic lesion is seen. The gallbladder is surgically absent. The common bile duct is normal in caliber. The right kidney, pancreas and inferior vena cava are unremarkable. The aorta is not assessed. IMPRESSION: 1. Cholecystectomy. 2. Otherwise, unremarkable abdomen sonogram. Electronically signed by: Mabel Marshall MD (05/05/2021 9:22 AM) [id number] Heart Score C/O Chest Pain: No HEART Score for Chest Pain: HEART Score for Chest Pain Response (Comments) Value History Moderately Suspicious 1 ECG Nonspecific Repolarizatio 1 Age < 45 0 Risk Factors 1 or 2 Risk Factors 1 Troponin < Normal Limit 0 Total 3 Risk Factors: Risk Factors: DM, Current or recent (<one month) smoker, HTN, HLP, family history of CAD, obesity. Risk Scores: Risk Factors: DM, Current or recent (<one month) smoker, HTN, HLP, family history of CAD, obesity. Course & Med Decision Making Course & Med Decision Making ABCs unremarkable. I disclosed entirety of ER findings and discussed most likely diagnosis of orthostatic hypotension in a patient with prior history of tachyarrhythmia requiring pacemaker placement. Other diagnoses were discussed with patient such as illness/infection, ACS, tachyarrhythmia etc. but all deemed less likely causes of patient's presentation. Patient responded to IV fluid rehydration with improvement in blood pressure and symptoms. Patient ambulated stating she felt much better and changed positions several times with improvement in symptoms. I voiced potential need for continued IV fluid rehydration and reassessment but patient deferred stating she could continue p.o. rehydration at home. I discussed need for close PCP, yam curer and GI follow-up given transaminitis of unknown etiology. Plan of care discussed at length with need for close outpatient follow-up to review today's ER visit stressed. Strict return precautions were also discussed at length with good understanding by patient. Patient voiced understanding and agreement with the plan. Patient knows to come back for repeat evaluation if concerning signs or symptoms present prior to outpatient follow-up. Hemodynamically stable, ambulatory and well-appearing at time of disposition. Dragon Disclaimer Dragon Disclaimer This electronic medical record was generated, in whole or in part, using a voice recognition dictation system. Departure Departure: Impression: Primary Impression: Orthostatic hypotension Additional Impressions: History of supraventricular tachycardia Pacemaker Transaminitis Disposition: HOME / SELF CARE / HOMELESS Condition: STABLE Referrals: CHANTAL LANGSTON (PCP) Patient Instructions: Orthostatic Hypotension Additional Instructions: You were seen for syncope. You should make sure to drink plenty of fluids. The most likely explanation is your low blood pressure coupled with history of tachydysrhythmia causing pacemaker resulting in you getting dizzy and passing out. You were hypotensive on arrival that improved with IV fluid rehydration. Also disclosed findings of transaminitis with a grossly unremarkable right upper quadrant ultrasound. You need to follow-up with your GI physician for further evaluation on this in the outpatient setting. Return to the ED immediately if you develop worsening symptoms, chest pain, shortness of breath, numbness, tingling, weakness, vision change, or any other new or concerning symptoms. Please call your primary care and yam curer physicians immediately after ER departure to review ER visit today Problem Qualifiers UTE SR DO May 05, 2021 06:37
[2021-05-05] MEDS ORDERED: IV NORMAL SALINE 1,000ML 1,000 ML IV ONE (07:00)
--- NOTE | 2021-05-05 07:00 | RAD ---
PQRS Compliance Statement: One or more of the following individualized dose reduction techniques were utilized for this examinat ion: 1. Automated exposure control 2. Adjustment of the mA and/or kV according to patient size 3. Use of iterative reconstruction technique CT HEAD AND CERVICAL SPINE WITHOUT CONTRAST History: Reason: fall with loc to anterior head / Comparison: CT head without contrast August 02, 2020. Procedure: Axial images are obtained of the head from the skull base through the vertex without IV co ntrast. Noncontrast helical CT of the cervical spine was performed. Axial, sagittal, and coronal rec onstructions were obtained. Findings: The ventricles and sulci are normal for the patient's age. No mass-effect, midline shift, hemorrhage or obvious acute infarction is identified. Basilar cistern s are patent. Bone windows demonstrate no significant calvarial abnormality. The visualized paranasal sinuses are clear. Mastoid air cells are well aerated. There is no evidence of acute fracture or acute malalignment of the cervical spine. The facet joints are intact. Straightening of normal cervical lordosis is likely due to c-collar. The re is no disc space narrowing. The vertebral body height and alignment are maintained. The central ca nal is patent. Visualized soft tissues of the neck demonstrate no significant abnormalities. The visualized lung api tricia are clear. IMPRESSION: 1. No acute intracranial abnormality. 2. No acute fracture of the cervical spine. Electronically signed by: Jairo Duque MD (05/05/2021 6:58 AM) [facility]
--- NOTE | 2021-05-05 07:12 | EKG ---
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
[2021-05-05] MEDS ORDERED: ACETAMINOPHEN 500 MG TABLET PO ONE ×2 (07:38→08:00)
[2021-05-05 07:57] LABS: BASO % 1 % (0-3); EOS # 0.1 x10^3/uL (0.0-0.7); EOS % 2 % (0-3); HEMATOCRIT 44.6 % (36.0-47.0); HEMOGLOBIN 15.1 g/dL (12.0-15.5); LYMPH # 1.6 x10^3/uL (1.0-4.8); LYMPH % 24 % (24-48); MEAN CORPUSCULAR HEMOGLOBIN 32 pg (25-35); MEAN CORPUSCULAR HGB CONC 34 g/dL (31-37); MEAN CORPUSCULAR VOLUME 95 fL (79-100); MONO # 0.6 x10^3/uL (0.0-1.1); MONO % 10 % (0-9); NEUT # 4.1 x10^3uL (1.8-7.7); NEUT % 63 % (31-73); PLATELET COUNT 175 x10^3/uL (140-400); RED BLOOD COUNT 4.71 x10^6/uL (3.50-5.40); RED CELL DISTRIBUTION WIDTH 12.3 % (11.5-14.5); WHITE BLOOD COUNT 6.5 x10^3/uL (4.0-11.0)
[2021-05-05 07:58] LABS: CALCIUM 8.6 mg/dL (8.5-10.1); CREATININE 0.6 mg/dL (0.6-1.0); GFR 113.8; POTASSIUM 4.4 mmol/L (3.5-5.1)
[2021-05-05 08:06] LABS: ALBUMIN 3.4 g/dL (3.4-5.0); TOTAL BILIRUBIN 0.5 mg/dL (0.2-1.0); TOTAL PROTEIN 6.9 g/dL (6.4-8.2)
[2021-05-05] MEDS ORDERED: KETOROLAC 15 MG/ML VIAL. IVP ONE (08:45)
--- NOTE | 2021-05-05 09:24 | RAD ---
EXAM: Abdomen sonogram. HISTORY: Transaminitis. TECHNIQUE: Sonographic imaging of the abdomen was performed. COMPARISON: None. FINDINGS: The liver is normal in size. No focal hepatic lesion is seen. The gallbladder is surgically absent. The common bile duct is normal in caliber. The right kidney, pancreas and inferior vena cava are unremarkable. The aorta is not assessed. IMPRESSION: 1. Cholecystectomy. 2. Otherwise, unremarkable abdomen sonogram. Electronically signed by: Mabel Marshall MD (05/05/2021 9:22 AM) [id number]
[2021-05-05 10:29] VITALS: BP 96/56
== END 2021-05-05 10:29 | disposition home or self-care (01) ==
LOC: ER 06:02
DX: I95.1 Orthostatic hypotension (principal); I47.1 Supraventricular tachycardia; R74.01 Elevation of levels of liver transaminase levels; Z90.49 Acquired absence of other specified parts of digestive tract; Z88.5 Allergy status to narcotic agent; Z88.2 Allergy status to sulfonamides; Z88.8 Allergy status to other drugs, medicaments and biological substances; Z87.891 Personal history of nicotine dependence
CPT/HCPCS: 36415; 70450; 72125; 76705; 80053; 84484; 85025; 93005; 96361; 96374; 99285; J1885; J7030

== ENCOUNTER 2021-05-05 22:57 | Emergency (ER) | payer BC ==
[~2021-05-05] VITALS: Ht 162.6 cm; Wt 109.4 kg
--- NOTE | 2021-05-05 23:36 | PHYS DOC ---
Past History Past Medical History: Anxiety, Arthritis, Arrhythmia, Depression, Fibromyalgia, Heart Disease, Hypertension, Hypothyroid, Migraines, Other Additional Past Medical Histor: past Ht of SVT, endometriosis. chronic back pain Past Surgical History: Appendectomy, Cholecystectomy, , Pacemaker, Tonsillectomy, Other Additional Past Surgical Histo: Cardiac ablation x 2; bilat ankle; colon Smoking: Quit Greater Than 1 Year Alcohol Use: None Drug Use: None General Adult EDM: Chief Complaint: CHEST PAIN HPI: HPI: 35-year-old female returns to the ER with chest pain. The patient tells me that she was seen in this ER earlier today for another complaint. She was tired at home but feeling okay until around 1030. Then she had a 5-10 minute episode of left-sided chest pain around her left breast. It did not radiate. She did not have shortness of breath or diaphoresis. She checked her blood pressure and it was 175/110. This was very concerning to her so she came into the emergency room. Patient has a history of pacemaker, hypertension and other medical issues in the chart. She denies fever or chills. Review of Systems: Review of Systems: Constitutional: Denies fever or chills. Hypertension Eyes: Denies change in visual acuity HENT: Denies nasal congestion or sore throat Respiratory: Denies cough or shortness of breath Cardiovascular: Chest pain GI: Denies abdominal pain, nausea, vomiting, bloody stools or diarrhea : Denies dysuria Musculoskeletal: Denies back pain or joint pain Integument: Denies rash Neurologic: Denies headache, focal weakness or sensory changes Endocrine: Denies polyuria or polydipsia Lymphatic: Denies swollen glands Psychiatric: Denies depression or anxiety Allergies: Allergies: Allergies Coded Allergies Type Severity Reaction Last Updated Verified codeine Allergy Unknown 08/02/20 Yes haloperidol Allergy Unknown 10/11/20 Yes metoclopramide Adverse Reaction Intermediate anxiety 08/02/20 Yes prochlorperazine Adverse Reaction Intermediate anxiety 08/02/20 Yes sulfamethoxazole Adverse Reaction Unknown MIGRAIN 08/02/20 Yes trimethoprim Adverse Reaction Unknown MIGRAIN 08/02/20 Yes Physical Exam: PE: Constitutional: Well developed, well nourished, no acute distress, non-toxic appearance. [] HENT: Normocephalic, atraumatic, bilateral external ears normal, oropharynx moist, no oral exudates, nose normal. [] Eyes: PERRLA, EOMI, conjunctiva normal, no discharge. [] Neck: Normal range of motion, no tenderness, supple, no stridor. [] Cardiovascular:Heart rate regular rhythm, no murmur [] Lungs & Thorax: Bilateral breath sounds clear to auscultation [] Abdomen: Bowel sounds normal, soft, no tenderness, no masses, no pulsatile masses. [] Skin: Warm, dry, no erythema, no rash. [] Back: No tenderness, no CVA tenderness. [] Extremities: No tenderness, no cyanosis, no clubbing, ROM intact, no edema. [] Neurologic: Alert and oriented X 3, normal motor function, normal sensory function, no focal deficits noted. [] Psychologic: Affect normal, judgement normal, mood normal. [] Current Patient Data: Vital Signs: Vital Signs Date Time Temp Pulse Resp B/P (MAP) Pulse Ox O2 Delivery O2 Flow Rate FiO2 05/05/21 23:17 97.9 69 18 154/95 97 EKG: EKG: [] Radiology/Procedures: Radiology/Procedures: [] Impressions: XR CHEST 1V Clinical History: Reason: CP / Spl. Instructions: / History: Technique: AP view of the chest was obtained at 05/05/2021 11:25 PM. Comparison: January 28, 2021. Findings: The cardiomediastinal silhouette is normal. The pulmonary vasculature is normal. The lungs and pleural margins are clear. The left-sided pacemaker is again seen. Impression: No evidence of an acute cardiopulmonary process. Electronically signed by: Kanchan Rossi III, MD (05/06/2021 12:14 AM) [facility] DICTATED AND SIGNED BY: KANCHAN ROSSI III, MD DATE: 05/06/21 0013 CC: ELVIRA DÍAZ DO; CHANTAL LANGSTON M ~MTH0 0 Heart Score: C/O Chest Pain: Yes HEART Score for Chest Pain: HEART Score for Chest Pain Response (Comments) Value History Slighlty/Non-Suspicious 0 ECG Normal 0 Age < 45 0 Risk Factors >3 Risk Factors or Hx CAD 2 Troponin < Normal Limit 0 Total 2 Risk Factors: Risk Factors: DM, Current or recent (<one month) smoker, HTN, HLP, family history of CAD, obesity. Risk Scores: Score 0 - 3: 2.5% MACE over next 6 weeks - Discharge Home Score 4 - 6: 20.3% MACE over next 6 weeks - Admit for Clinical Observation Score 7 - 10: 72.7% MACE over next 6 weeks - Early Invasive Strategies Course & Med Decision Making: Course & Med Decision Making Pertinent Labs and Imaging studies reviewed. (See chart for details) The patient's EKG is unremarkable. Her labs are unremarkable except for elevated liver enzymes and glucose of 208. Anion gap is normal. Her troponin is negative. Based on the patient's story, this is unlikely to be a cardiac event. I have advised that the patient follow-up with her primary care physician for these liver labs. She is stable for discharge at this time. [] Jovanni Disclaimer: Jovanni Disclaimer: This electronic medical record was generated, in whole or in part, using a voice recognition dictation system. Departure Departure: Impression: Primary Impression: Chest pain Disposition: HOME / SELF CARE / HOMELESS Condition: STABLE Referrals: CHANTAL LANGSTON (PCP) Patient Instructions: Chest Pain (Nonspecific), [id number] ELVIRA ÍDAZ DO May 05, 2021 23:36
[2021-05-05 23:45] LABS: BASO % 1 % (0-3); EOS # 0.1 x10^3/uL (0.0-0.7); EOS % 2 % (0-3); HEMATOCRIT 42.2 % (36.0-47.0); HEMOGLOBIN 14.3 g/dL (12.0-15.5); LYMPH # 1.8 x10^3/uL (1.0-4.8); LYMPH % 30 % (24-48); MEAN CORPUSCULAR HEMOGLOBIN 32 pg (25-35); MEAN CORPUSCULAR HGB CONC 34 g/dL (31-37); MEAN CORPUSCULAR VOLUME 94 fL (79-100); MONO # 0.7 x10^3/uL (0.0-1.1); MONO % 11 % (0-9); NEUT # 3.4 x10^3uL (1.8-7.7); NEUT % 56 % (31-73); PLATELET COUNT 167 x10^3/uL (140-400); RED CELL DISTRIBUTION WIDTH 12.3 % (11.5-14.5)
[2021-05-05 23:53] LABS: CALCIUM 8.3 mg/dL (8.5-10.1); CREATININE 0.6 mg/dL (0.6-1.0); GFR 113.8; POTASSIUM 4.3 mmol/L (3.5-5.1)
[2021-05-05 23:59] LABS: ALBUMIN 3.3 g/dL (3.4-5.0); ALBUMIN/GLOBULIN RATIO 0.9 (1.0-1.7); TOTAL BILIRUBIN 0.4 mg/dL (0.2-1.0); TOTAL PROTEIN 7.1 g/dL (6.4-8.2)
[2021-05-06] MEDS ORDERED: METOPROLOL TARTRATE 5 MG/5 ML VIAL. IV ONE
--- NOTE | 2021-05-06 00:17 | RAD ---
XR CHEST 1V Clinical History: Reason: CP / Spl. Instructions: / History: Technique: AP view of the chest was obtained at 05/05/2021 11:25 PM. Comparison: January 28, 2021. Findings: The cardiomediastinal silhouette is normal. The pulmonary vasculature is normal. The lungs and pleura l margins are clear. The left-sided pacemaker is again seen. Impression: No evidence of an acute cardiopulmonary process. Electronically signed by: Gilbert Rossi III, MD (05/06/2021 12:14 AM) [facility]
[2021-05-06 01:12] VITALS: BP 111/68
--- NOTE | 2021-05-06 02:47 | EKG ---
[address] [address] Test Date: 2021-05-05 Test Time: 21:25:09 Pat Name: FORTINO CH Department: Room: Gender: F [employer] Worker: ALYSSA : 1985 Requested By: ELVIRA DÍAZ Order Number: [id number] Reading MD: Measurements Intervals [place] Rate: 96 P: 51 SD: 142 QRS: 26 QRSD: 86 T: 15 QT: 332 QTc: 426 Interpretive Statements SINUS RHYTHM NORMAL ECG RI6.02 No previous ECG available for comparison
== END 2021-05-06 01:30 | disposition home or self-care (01) ==
LOC: ER 22:57
DX: R07.89 Other chest pain (principal); Z88.5 Allergy status to narcotic agent; Z88.2 Allergy status to sulfonamides; Z90.49 Acquired absence of other specified parts of digestive tract; Z87.891 Personal history of nicotine dependence
CPT/HCPCS: 36415; 71045; 80053; 81025; 84484; 85025; 93005; 99285-25

== ENCOUNTER 2021-05-08 19:27 | Emergency (ER) | payer BC ==
[~2021-05-08] VITALS: Ht 165.1 cm; Wt 104.0 kg
[2021-05-08] MEDS ORDERED: IV RINGERS SOLUTION,LACTATED 1,000 ML IV ONE ×2 (20:00→22:30)
[2021-05-08] MEDS ORDERED: LEVOTHYROXINE 100 MCG TABLET PO ONE (20:15)
--- NOTE | 2021-05-08 20:29 | PHYS DOC ---
Past History Past Medical History: Anxiety, Arthritis, Arrhythmia, Depression, Fibromyalgia, Heart Disease, Hypertension, Hypothyroid, Migraines, Other Additional Past Medical Histor: past Ht of SVT, endometriosis. chronic back pain Past Surgical History: Pacemaker Additional Past Surgical Histo: Ablation Smoking: Quit Greater Than 1 Year Alcohol Use: None Drug Use: None Adult General Chief Complaint Chief Complaint: SYNCOPE HPI HPI Patient is a 35-year-old female with a past medical history significant for arrhythmias, status post ablation and pacemaker placement 3 years ago who presents with a chief complaint of lightheadedness, blood pressure. States has been going on over the last couple of weeks. States that anytime she sits up or gets up she gets lightheaded. States she has been taking her blood pressure every day and notices that it is low. States she quit taking her metoprolol a week ago as her doctor told her this could be causing her to have low heart rate/blood pressure and directed her to the emergency department. States she does have hypothyroidism and is taking 75 mcg of levothyroxine daily but did not take it today. Denies any recent traumas, travels, illnesses, chest pain, shortness of breath, abdominal pain, nausea, vomiting, dysuria, hematuria or blood in the stool. Denies any alcohol or drug use. Denies any dyspnea on exertion, orthopnea, PND or edema. Review of Systems Review of Systems Review of systems otherwise unremarkable except noted in HPI Current Medications Current Medications Current Medications Medications (Trade) Dose Ordered Sig/Walter Start Time Stop Time Status Last Admin Dose Admin Lactated Ringer's 1,000 ml @ 1,000 mls/hr 1X ONCE 05/08/21 20:00 05/08/21 20:59 Levothyroxine Sodium (Synthroid) 100 mcg 1X ONCE 05/08/21 20:15 05/08/21 20:22 DC Allergies Allergies Allergies Coded Allergies Type Severity Reaction Last Updated Verified codeine Allergy Unknown 08/02/20 Yes haloperidol Allergy Unknown 10/11/20 Yes metoclopramide Adverse Reaction Intermediate anxiety 08/02/20 Yes prochlorperazine Adverse Reaction Intermediate anxiety 08/02/20 Yes sulfamethoxazole Adverse Reaction Unknown MIGRAIN 08/02/20 Yes trimethoprim Adverse Reaction Unknown MIGRAIN 08/02/20 Yes Physical Exam Physical Exam Constitutional: Well developed, well nourished, no acute distress, non-toxic appearance. [] HENT: Normocephalic, atraumatic, bilateral external ears normal, oropharynx moist, no oral exudates, nose normal. [] Eyes: conjunctiva normal, no discharge. [] Neck: Normal range of motion, no tenderness, supple, no stridor. [] Cardiovascular: Sinus bradycardia Lungs & Thorax: Bilateral breath sounds clear to auscultation [] Abdomen: Bowel sounds normal, soft, no tenderness, no masses, no pulsatile masses. [] Skin: Warm, dry, no erythema, no rash. [] Back: no CVA tenderness. [] Extremities: No tenderness, ROM intact, no edema. [] Neurologic: Alert and oriented X 3, cranial nerves intact, able to sit, stand and walk without issue, normal motor function, normal sensory function to touch, no focal deficits noted. [] Psychologic: Affect normal, judgement normal, mood normal. [] Current Patient Data Vital Signs Vital Signs Date Time Temp Pulse Resp B/P (MAP) Pulse Ox O2 Delivery O2 Flow Rate FiO2 05/08/21 19:43 98.7 61 15 114/75 96 Room Air EKG EKG [] Radiology/Procedures Radiology/Procedures []ngle view chest dated 05/08/2021 10:13 PM: COMPARISON: 05/05/2021 Clinical Indication: Cardiac workup. Findings: Single upright portable exam of the chest was performed. Heart size and mediastinal contours are within normal limits. Lungs are clear. No consolidation or pleural effusion. No pneumothorax. Subclavian pacer in place, unchanged. IMPRESSION: No acute radiographic abnormality. Stable findings compared to 05/05/2021. Electronically signed by: Brendan Roach MD (05/08/2021 10:14 PM) [facility] Heart Score C/O Chest Pain: No Risk Factors: Risk Factors: DM, Current or recent (<one month) smoker, HTN, HLP, family history of CAD, obesity. Risk Scores: Risk Factors: DM, Current or recent (<one month) smoker, HTN, HLP, family history of CAD, obesity. Course & Med Decision Making Course & Med Decision Making Patient is a 35-year-old female who presents with a chief complaint of lightheadedness and low blood pressure Vital signs notable for borderline sinus bradycardia and hypotension. Orthostatics with hypotension and map in the 50s. Patient placed on the monitor with IV access established and IV fluid begun. EKG noted above with no STEMI. Given increased dose of daily levothyroxine. Laboratory analysis notable for elevated liver enzymes. However patient states that they have been considerably elevated over the last 6 months and these numbers are slightly improved from before. Denies any abdominal pain. Denies any Tylenol use. Denies any history of hepatitis or alcohol use. Imaging with no acute findings. After fluid resuscitation and levothyroxine on reassessment, patient was feeling little better and able to walk without serious exacerbation of symptoms. Patient states that as she was walking and sat down off as she did feel lightheaded for a moment. Offered admission to the hospital for continued evaluation and treatment for her lightheadedness. Patient states that since her is here he will take her home and she feels safe to discharged home and will call her primary care physician in the morning. Requested a work note for tomorrow. Discussed all findings and gave strict return precautions to the ED. Family grateful, verbalized understanding agreed with plan of discharge. [] Dragon Disclaimer Dragon Disclaimer This electronic medical record was generated, in whole or in part, using a voice recognition dictation system. Departure Departure: Impression: Primary Impression: Lightheadedness Additional Impression: Low blood pressure Disposition: 01 HOME / SELF CARE / HOMELESS Condition: IMPROVED Referrals: CHANTAL LANGSTON (PCP) Patient Instructions: Dizziness, Thyroid Diseases Additional Instructions: Thank you for coming into the emergency department tonight and allowing us to take care of you. You are offered admission to the hospital for continued IV fluid resuscitation and observation but declined and stated that she would prefer to just go on home to a comfortable bed and call your primary care physician in the morning. Please read the attached information carefully go back over some of the things we discussed. You are given a work note for the next couple of days to allow you to call your primary care physician first thing in the morning and set up an immediate ER follow-up visit to discuss continued evaluation and treatment. Please also be sure to inform your primary care physician you were given 100 mcg of levothyroxine here in the emergency department. Please be sure to eat at least 3 nutritious meals a day and stay well-hydrated. Please be sure that when you are getting up from a sitting or laying down position to move slowly. Please come back to the ED with new or concerning symptoms as discussed. Problem Qualifiers SEAN ZHANG MD May 08, 2021 20:29
[2021-05-08 20:49] LABS: BASO % 1 % (0-3); EOS # 0.2 x10^3/uL (0.0-0.7); EOS % 2 % (0-3); HEMATOCRIT 43.9 % (36.0-47.0); LYMPH % 28 % (24-48); MEAN CORPUSCULAR HEMOGLOBIN 32 pg (25-35); MEAN CORPUSCULAR HGB CONC 34 g/dL (31-37); MEAN CORPUSCULAR VOLUME 94 fL (79-100); MONO # 0.8 x10^3/uL (0.0-1.1); MONO % 11 % (0-9); NEUT # 4.2 x10^3uL (1.8-7.7); NEUT % 58 % (31-73); PLATELET COUNT 192 x10^3/uL (140-400); RED BLOOD COUNT 4.65 x10^6/uL (3.50-5.40); RED CELL DISTRIBUTION WIDTH 12.7 % (11.5-14.5); WHITE BLOOD COUNT 7.2 x10^3/uL (4.0-11.0)
[2021-05-08 21:31] LABS: CALCIUM 8.4 mg/dL (8.5-10.1); CREATININE 0.6 mg/dL (0.6-1.0); GFR 113.8; POTASSIUM 4.5 mmol/L (3.5-5.1)
[2021-05-08 21:37] LABS: ALBUMIN 3.1 g/dL (3.4-5.0); TOTAL BILIRUBIN 0.6 mg/dL (0.2-1.0); TOTAL PROTEIN 6.3 g/dL (6.4-8.2)
--- NOTE | 2021-05-08 22:16 | RAD ---
Single view chest dated 05/08/2021 10:13 PM: COMPARISON: 05/05/2021 Clinical Indication: Cardiac workup. Findings: Single upright portable exam of the chest was performed. Heart size and mediastinal contours are with in normal limits. Lungs are clear. No consolidation or pleural effusion. No pneumothorax. Subclavian pacer in place, unchanged. IMPRESSION: No acute radiographic abnormality. Stable findings compared to 05/05/2021. Electronically signed by: Brendan Roach MD (05/08/2021 10:14 PM) ANNY
[2021-05-08 22:27] LABS: BILIRUBIN,URINE NEG (NEG); CLARITY,URINE CLEAR; COLOR,URINE YELLOW; GLUCOSE,URINE NEG (NEG)
[2021-05-08 22:28] LABS: BACTERIA,URINE 0 /HPF (0-FEW); NITRITE,URINE NEG (NEG); RBC,URINE 0 /HPF (0-2); SQUAMOUS EPITHELIAL CELL,UR FEW /LPF; UROBILINOGEN,URINE 0.2 mg/dL (0.2 mg/dL); WBC,URINE OCC /HPF (0-4)
--- NOTE | 2021-05-08 22:53 | EKG ---
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
[2021-05-08 23:08] VITALS: BP 142/89
== END 2021-05-09 00:20 | disposition home or self-care (01) ==
LOC: ER 19:27
DX: I95.9 Hypotension, unspecified (principal); R42 Dizziness and giddiness; F41.9 Anxiety disorder, unspecified; M19.90 Unspecified osteoarthritis, unspecified site; F32.9 Major depressive disorder, single episode, unspecified; M79.7 Fibromyalgia; E03.9 Hypothyroidism, unspecified; I11.9 Hypertensive heart disease without heart failure; G43.909 Migraine, unspecified, not intractable, without status migrainosus; G89.29 Other chronic pain; Z87.891 Personal history of nicotine dependence; Z95.0 Presence of cardiac pacemaker; Z88.5 Allergy status to narcotic agent; Z88.2 Allergy status to sulfonamides; Z88.8 Allergy status to other drugs, medicaments and biological substances
CPT/HCPCS: 36415; 71045; 80053; 81001; 83605; 83735; 84443; 84484; 85025; 93005; 96360; 96361; 99285; J7120

== ENCOUNTER 2021-12-17 14:28 | Emergency (ER) | payer BC ==
[~2021-12-17] VITALS: Ht 162.6 cm; Wt 105.3 kg
[2021-12-17] MEDS ORDERED: KETOROLAC 15 MG/ML VIAL. IVP ONE (14:45)
[2021-12-17] MEDS ORDERED: IV NORMAL SALINE 1,000ML 1,000 ML IV ONE (14:45)
--- NOTE | 2021-12-17 15:04 | PHYS DOC ---
Past History Past Medical History: Anxiety, Arthritis, Arrhythmia, Depression, Fibromyalgia, Heart Disease, Hypertension, Hypothyroid, Migraines, Other Additional Past Medical Histor: past Ht of SVT, endometriosis. chronic back pain (THALIA CHRISTOPHER APRN) Past Surgical History: Pacemaker Additional Past Surgical Histo: Ablation (THALIA CHRISTOPHER APRN) Smoking: Quit Greater Than 1 Year Alcohol Use: Rarely Drug Use: None (THALIA CHRISTOPHER APRN) General Adult EDM: Chief Complaint: PAIN ON URINATION HPI: HPI: Patient is a 36-year-old female who presents to the emergency department for left groin pain that radiates to her left flank that started a week and a half ago. Patient reports she saw her primary care provider and was placed on M acrobid. 2 days ago she got switched to Cipro and she is taking it as directed. Patient is reporting urinary frequency and urgency. She has been taking Tylenol and Pyridium for her symptoms. She denies dysuria, nausea, vomiting, fevers. She has a history of kidney stones. (THALIA CHRISTOPHER APRN) Review of Systems: Review of Systems: Constitutional: see HPI GI: See HPI : See HPI Musculoskeletal: See HPI (THALIA CHRISTOPHER APRN) Current Medications: Current Meds: Current Medications Medications (Trade) Dose Ordered Sig/Walter Start Time Stop Time Status Last Admin Dose Admin Ketorolac Tromethamine (Toradol 15mg Vial) 15 mg 1X ONCE 12/17/21 14:45 12/17/21 14:46 UNV Sodium Chloride 1,000 ml @ 1,000 mls/hr 1X ONCE 12/17/21 14:45 12/17/21 15:44 UNV (THALIA CHRISTOPHER APRN) Allergies: Allergies: Allergies Coded Allergies Type Severity Reaction Last Updated Verified codeine Allergy Unknown 08/02/20 Yes haloperidol Allergy Unknown 10/11/20 Yes metoclopramide Adverse Reaction Intermediate anxiety 08/02/20 Yes prochlorperazine Adverse Reaction Intermediate anxiety 08/02/20 Yes sulfamethoxazole Adverse Reaction Unknown MIGRAIN 08/02/20 Yes trimethoprim Adverse Reaction Unknown MIGRAIN 08/02/20 Yes (THALIA CHRISTOPHER APRN) Physical Exam: PE: Constitutional: Well developed, well nourished, no acute distress, non-toxic appearance. [] HENT: Normocephalic, atraumatic, bilateral external ears normal, oropharynx moist, no oral exudates, nose normal. [] Eyes: PERRL, EOMI, conjunctiva normal, no discharge. [] Neck: Normal range of motion, no tenderness, supple, no stridor. [] Cardiovascular:Heart rate regular rhythm, no murmur [] Lungs & Thorax: Bilateral breath sounds clear to auscultation [] Abdomen: Bowel sounds normal, soft, llq pain with palpation, negative murphys sign, no masses, no pulsatile masses. [] Skin: Warm, dry, no erythema, no rash. [] Back: No tenderness, no CVA tenderness. [] Extremities: No tenderness, no cyanosis, no clubbing, ROM intact, no edema. [] Neurologic: Alert and oriented X 3, normal motor function, normal sensory function, no focal deficits noted. [] Psychologic: Affect normal, judgement normal, mood normal. [] (THALIA CHRISTOPHER APRN) Current Patient Data: Labs: Laboratory Tests Test 12/17/21 14:04 12/17/21 14:45 12/17/21 15:10 Bedside Urine HCG, Qualitative hcg negative Urine Collection Type Clean catch Urine Color Yellow Urine Clarity Clear Urine pH 7.0 Urine Specific [place] 1.025 Urine Protein Neg Urine Glucose (UA) Neg mg/dL Urine Ketones (Stick) Neg mg/dL Urine Blood Neg Urine Nitrite Neg Urine Bilirubin Neg Urine Urobilinogen Dipstick 0.2 mg/dL Urine Leukocyte Esterase Neg Urine RBC 0 /HPF Urine WBC 0 /HPF Urine Squamous Epithelial Cells Few /LPF Urine Bacteria 0 /HPF Sodium Level 141 mmol/L Potassium Level 4.4 mmol/L Chloride Level 104 mmol/L Carbon Dioxide Level 25 mmol/L Anion Gap 12 Blood Urea Nitrogen 12 mg/dL Creatinine 0.7 mg/dL Estimated GFR (Cockcroft-Gault) 94.7 BUN/Creatinine Ratio 17 Glucose Level 83 mg/dL Calcium Level 9.8 mg/dL Total Bilirubin 0.5 mg/dL Aspartate Amino Transf (AST/SGOT) 35 U/L Alanine Aminotransferase (ALT/SGPT) 46 U/L Alkaline Phosphatase 89 U/L Total Protein 8.3 g/dL Albumin 3.6 g/dL Albumin/Globulin Ratio 0.8 Lipase 281 U/L Current Medications Medications (Trade) Dose Ordered Sig/Walter Route PRN Reason Start Time Stop Time Status Last Admin Dose Admin Sodium Chloride 1,000 ml @ 1,000 mls/hr 1X ONCE IV 12/17/21 14:45 12/17/21 15:44 DC 12/17/21 15:24 Ketorolac Tromethamine (Toradol 15mg Vial) 15 mg 1X ONCE IVP 12/17/21 14:45 12/17/21 15:07 DC 12/17/21 15:24 Fentanyl Citrate (Fentanyl 2ml Vial) 50 mcg 1X ONCE IVP 12/17/21 16:45 12/17/21 16:46 DC 12/17/21 16:43 (THALIA CHRISTOPHER APRN) EKG: EKG: [] (THALIA CHRISTOPHER APRN) Radiology/Procedures: Radiology/Procedures: []PROCEDURE: CT ABDOMEN PELVIS WO CONTRAST Examination: CT of the abdomen pelvis without contrast HISTORY: History of flank pain COMPARISON: None available TECHNIQUE: Axial CT images of the abdomen pelvis were performed without contrast. Coronal and sagittal reformats are performed without contrast Exposure: One or more of the following individualized dose reduction techniques were utilized for this examination: 1. Automated exposure control 2. Adjustment of the mA and/or kV according to patient size 3. Use of iterative reconstruction technique FINDINGS: The bibasilar lungs are clear. No evidence of free air identified in the abdomen. The evaluation of the solid organs is limited due to lack of IV contrast. The evaluation of bowel is limited due to lack of oral contrast. The visualized noncontrasted liver, spleen, adrenals grossly appears unremarkable. Cholecystectomy changes identified. The stomach is mildly distended. The visualized pancreas grossly appears unremarkable. The small bowel is nondilated. Feces and gas noted in the colon. Surgical changes of partial colectomy. Intrarenal collecting system calculi identified in the left kidney with the largest measuring 5 mm. Bilateral L5 spondylolysis. Moderate intervertebral disc height loss identified at L5-S1 vertebral level. Mild degenerative changes lumbar spine. IMPRESSION: 1. Left nephrolithiasis. No hydronephrosis. Electronically signed by: Donal Trimble MD (12/17/2021 3:19 PM) [id number] DICTATED AND SIGNED BY: DONAL TRIMBLE MD DATE: 12/17/21 1512 CC: EMERGENCY,DEPARTMENT; THALIA CHRISTOPHER APRN; CHANTAL LANGSTON ~ (THALIA CHRISTOPHER APRN) Heart Score: C/O Chest Pain: N/A Risk Factors: Risk Factors: DM, Current or recent (<one month) smoker, HTN, HLP, family history of CAD, obesity. Risk Scores: Score 0 - 3: 2.5% MACE over next 6 weeks - Discharge Home Score 4 - 6: 20.3% MACE over next 6 weeks - Admit for Clinical Observation Score 7 - 10: 72.7% MACE over next 6 weeks - Early Invasive Strategies (THALIA CHRISTOPHER APRN) Course & Med Decision Making: Course & Med Decision Making Pertinent Labs and Imaging studies reviewed. (See chart for details) []Patient presnts to llq and left flank pain. Patient has a history of UTIs and has been placed on 2 different antibiotics. Patient does have a history of kidney stones. Work-up in the ER consisted of blood work, urinalysis CT imaging of abdomen and pelvis to rule out stone. Patient treated with IV fluids and pain medication. Patient's blood work was unremarkable, urinalysis not show any infection. CT scan shows an intrarenal left kidney stone measuring 5 mm without any hydronephrosis. This should not be causing patient's pain. Patient be discharged home with pain medication, she reports that she tolerates hydrocodone she is advised to follow-up with her primary care provider. His vital signs are stable. I discussed with patient all findings and diagnostic testing as well as the need to follow-up with PCP for further evaluation and treatment or return to the ER if any new or worsening symptoms. Strict return precautions were also discussed at length. Patient voiced understanding and agreement with the plan. Patient is hemodynamically stable at the time of disposition. (THALIA CHRISTOPHER APRN) Dragon Disclaimer: Dragon Disclaimer: This electronic medical record was generated, in whole or in part, using a voice recognition dictation system. (THALIA CHRISTOPHER APRN) Attending Co-Sign The patient was seen and interviewed as well as examined at the bedside. The chart was reviewed. The case was discussed. Agree with the plan of care. (ELVIRA DÍAZ DO) Departure Departure: Impression: Primary Impression: Abdominal pain Qualified Codes: R10.32 - Left lower quadrant pain Disposition: HOME / SELF CARE / HOMELESS Condition: GOOD Referrals: CHANTAL LANGSTON (PCP) Patient Instructions: Abdominal Pain (Nonspecific) Additional Instructions: You were seen in the emergency department today for left groin pain and flank pain. As we discussed, your blood work was unremarkable your urinalysis did not show any infection. You were noted to have a kidney stone still in your left kidney. You are being discharged home with pain medication take as needed. This medication may cause sedation so do not take need to be alert, driving a vehicle with alcohol. This medication is hydrocodone and Tylenol and a combination tablet so caution any additional use of Tylenol. Follow-up with your primary care provider on Sunday regarding your ER visit. Return to the emergency department if you develop intractable abdominal pain, high fevers refractory to treatment, intractable nausea or vomiting, blood in your stools or vomit or any new or worsening concerns. Scripts Hydrocodone Bit/Acetaminophen (HYDROCODONE-APAP 5-325 ) 1 Each Tablet 1 TAB PO PRN Q6HRS PRN for PAIN for 2 Days, #8 TAB 0 Refills Prov: THALIA CHRISTOPHER APRN 12/17/21 THALIA CHRISTOPHER APRN Dec 17, 2021 15:04 ELVIRA DÍAZ DO Dec 18, 2021 16:56
--- NOTE | 2021-12-17 15:21 | RAD ---
Examination: CT of the abdomen pelvis without contrast HISTORY: History of flank pain COMPARISON: None available TECHNIQUE: Axial CT images of the abdomen pelvis were performed without contrast. Coronal and sagitta l reformats are performed without contrast Exposure: One or more of the following individualized dose reduction techniques were utilized for thi s examination: 1. Automated exposure control 2. Adjustment of the mA and/or kV according to patient size 3. Use of iterative reconstruction technique FINDINGS: The bibasilar lungs are clear. No evidence of free air identified in the abdomen. The evaluation of the solid organs is limited due to lack of IV contrast. The evaluation of bowel is limited due to lack of oral contrast. The visualized noncontrasted liver, spleen, adrenals grossly appears unremarkable. Cholecystectomy ch anges identified. The stomach is mildly distended. The visualized pancreas grossly appears unremarkab le. The small bowel is nondilated. Feces and gas noted in the colon. Surgical changes of partial lexy ctomy. Intrarenal collecting system calculi identified in the left kidney with the largest measuring 5 mm. B ilateral L5 spondylolysis. Moderate intervertebral disc height loss identified at L5-S1 vertebral lev el. Mild degenerative changes lumbar spine. IMPRESSION: 1. Left nephrolithiasis. No hydronephrosis. Electronically signed by: Donal Trimble MD (12/17/2021 3:19 PM) [id number]
[2021-12-17 15:41] LABS: CLARITY,URINE CLEAR; COLOR,URINE YELLOW
[2021-12-17 15:42] LABS: BACTERIA,URINE 0 /HPF (0-FEW); GLUCOSE,URINE NEG (NEG); NITRITE,URINE NEG (NEG); RBC,URINE 0 /HPF (0-2); SQUAMOUS EPITHELIAL CELL,UR FEW /LPF; UROBILINOGEN,URINE 0.2 mg/dL (0.2 mg/dL); WBC,URINE 0 /HPF (0-4)
[2021-12-17 16:01] LABS: BASO # 0.1 x10^3/uL (0.0-0.2); BASO % 1 % (0-3); EOS # 0.1 x10^3/uL (0.0-0.7); EOS % 1 % (0-3); HEMATOCRIT 44.9 % (36.0-47.0); LYMPH # 2.8 x10^3/uL (1.0-4.8); LYMPH % 25 % (24-48); MEAN CORPUSCULAR HEMOGLOBIN 31 pg (25-35); MEAN CORPUSCULAR HGB CONC 34 g/dL (31-37); MEAN CORPUSCULAR VOLUME 93 fL (79-100); MONO # 0.6 x10^3/uL (0.0-1.1); MONO % 5 % (0-9); NEUT # 7.8 x10^3uL (1.8-7.7); NEUT % 69 % (31-73); PLATELET COUNT 233 x10^3/uL (140-400); RED BLOOD COUNT 4.81 x10^6/uL (3.50-5.40); RED CELL DISTRIBUTION WIDTH 12.2 % (11.5-14.5); WHITE BLOOD COUNT 11.4 x10^3/uL (4.0-11.0)
[2021-12-17 16:12] LABS: CALCIUM 9.8 mg/dL (8.5-10.1); CREATININE 0.7 mg/dL (0.6-1.0); GFR 94.7; POTASSIUM 4.4 mmol/L (3.5-5.1)
[2021-12-17 16:18] LABS: ALBUMIN 3.6 g/dL (3.4-5.0); ALBUMIN/GLOBULIN RATIO 0.8 (1.0-1.7); TOTAL BILIRUBIN 0.5 mg/dL (0.2-1.0); TOTAL PROTEIN 8.3 g/dL (6.4-8.2)
[2021-12-17 16:38] VITALS: BP 135/79
[2021-12-17] MEDS ORDERED: HYDR-2155 PO (16:53)
== END 2021-12-17 17:05 | disposition home or self-care (01) ==
LOC: ER 14:28
DX: R10.32 Left lower quadrant pain (principal); R35.0 Frequency of micturition; R39.15 Urgency of urination; M19.90 Unspecified osteoarthritis, unspecified site; M79.7 Fibromyalgia; I11.9 Hypertensive heart disease without heart failure; E03.9 Hypothyroidism, unspecified; G43.909 Migraine, unspecified, not intractable, without status migrainosus; G89.29 Other chronic pain; Z95.0 Presence of cardiac pacemaker; Z87.891 Personal history of nicotine dependence; Z88.5 Allergy status to narcotic agent; Z88.2 Allergy status to sulfonamides; Z88.1 Allergy status to other antibiotic agents; Z88.8 Allergy status to other drugs, medicaments and biological substances
CPT/HCPCS: 36415; 74176; 80053; 81001; 81025; 83690; 85025; 96361; 96374; 96375; 99285; J1885; J3010; J7030